=== PATIENT | female | born 1955 ===

== ENCOUNTER 2023-12-30 16:08 | Emergency (ER) | payer OTHER, SELFPAY ==
--- NOTE | ~2023-12-30 | XR_ITS ---
EXAMINATION: X-RAY RIGHT TIBIA/FIBULA X-RAY RIGHT ANKLE X-RAY RIGHT FOOT CLINICAL INFORMATION: Fall. COMPARISON: None available. TECHNIQUE: 2 views of the right tibia/fibula, 2 views of the right ankle and 3 views of the right foot. FINDINGS: Obliquely oriented mildly displaced distal fibular fracture. Minimal asymmetric widening of the medial clear space of the ankle mortise. Surrounding soft tissue swelling. Very subtle punctate osseous fragment adjacent to the lateral surface of the distal phalanx of the second toe that might represent a tiny degenerative osteophyte versus very small avulsion injury. No additional fractures. Mild multifocal degenerative osteoarthritis. No unexpected radiopaque foreign bodies. XR/XR ankle RT 2V IMPRESSION: 1. Mildly displaced distal fibular fracture. 2. Minimal asymmetric widening of the medial clear space of the ankle mortise suggesting ligamentous injury. 3. Very subtle punctate osseous fragment adjacent to the lateral surface of the distal phalanx of the second toe that might represent a degenerative osteophyte versus very small avulsion injury. Correlate with point tenderness.
--- NOTE | ~2023-12-30 | XR_ITS ---
EXAMINATION: X-RAY RIGHT TIBIA/FIBULA X-RAY RIGHT ANKLE X-RAY RIGHT FOOT CLINICAL INFORMATION: Fall. COMPARISON: None available. TECHNIQUE: 2 views of the right tibia/fibula, 2 views of the right ankle and 3 views of the right foot. FINDINGS: Obliquely oriented mildly displaced distal fibular fracture. Minimal asymmetric widening of the medial clear space of the ankle mortise. Surrounding soft tissue swelling. Very subtle punctate osseous fragment adjacent to the lateral surface of the distal phalanx of the second toe that might represent a tiny degenerative osteophyte versus very small avulsion injury. No additional fractures. Mild multifocal degenerative osteoarthritis. No unexpected radiopaque foreign bodies. XR/XR foot RT 2V IMPRESSION: 1. Mildly displaced distal fibular fracture. 2. Minimal asymmetric widening of the medial clear space of the ankle mortise suggesting ligamentous injury. 3. Very subtle punctate osseous fragment adjacent to the lateral surface of the distal phalanx of the second toe that might represent a degenerative osteophyte versus very small avulsion injury. Correlate with point tenderness.
--- NOTE | ~2023-12-30 | XR_ITS ---
EXAMINATION: X-RAY RIGHT TIBIA/FIBULA X-RAY RIGHT ANKLE X-RAY RIGHT FOOT CLINICAL INFORMATION: Fall. COMPARISON: None available. TECHNIQUE: 2 views of the right tibia/fibula, 2 views of the right ankle and 3 views of the right foot. FINDINGS: Obliquely oriented mildly displaced distal fibular fracture. Minimal asymmetric widening of the medial clear space of the ankle mortise. Surrounding soft tissue swelling. Very subtle punctate osseous fragment adjacent to the lateral surface of the distal phalanx of the second toe that might represent a tiny degenerative osteophyte versus very small avulsion injury. No additional fractures. Mild multifocal degenerative osteoarthritis. No unexpected radiopaque foreign bodies. XR/XR tibia fibula RT 2V IMPRESSION: 1. Mildly displaced distal fibular fracture. 2. Minimal asymmetric widening of the medial clear space of the ankle mortise suggesting ligamentous injury. 3. Very subtle punctate osseous fragment adjacent to the lateral surface of the distal phalanx of the second toe that might represent a degenerative osteophyte versus very small avulsion injury. Correlate with point tenderness.
[2023-12-30 16:45] VITALS: BP 101/47; PULSE 84; RESP 16; TEMP 37; O2SAT 98; BMI 24.1
--- NOTE | 2023-12-30 17:03 | ED_ITS ---
HPI - General Adult General Chief complaint: Extremity Injury, Lower Stated complaint: rt ankle fracture Time Seen by Provider: 12/30/23 21:02 Source: patient and family Mode of arrival: ambulatory History of Present Illness HPI narrative: 68-year-old female who fell 3 days ago, unable to go downstairs so daughter came and picked her up and took her to urgent care on Sunday where x-ray showed a minimally displaced fibular fracture, at that time she was placed in a walking boot until no weight-bearing but decided to come in due to inability to use crutches. Related Data Previous Rx's ?Medication ?Instructions ?Recorded walker #1 ea 12/30/23 Allergies Allergy/AdvReac Type Severity Reaction Status Date / Time No Known Allergies Allergy Verified 12/30/23 16:51 Review of Systems Review of Systems: Pertinent positives and negatives as stated in HPI [facility] Past Medical History Source: nursing notes reviewed Medical History (Updated 12/30/23 @ 21:43 by Sophie Sosa MD) Fracture of distal end of fibula Social History Social History Smoked in Last 30 Days: No Use of substances other than those prescribed or required for medical reasons: No Advance Directives: No Advance Directives Information Provided: No Physical Exam ED Vital Signs: Vital Signs - 24 hr 12/30/23 16:45 12/30/23 20:06 12/30/23 22:04 Temperature 98.6 F 98.9 F 98.0 F Pulse Rate 84 65 73 Respiratory Rate 16 16 18 Blood Pressure 101/47 L 100/62 107/58 L Pulse Oximetry 98 95 96 Oxygen Delivery Method Room Air Room Air Room Air 12/30/23 22:07 Temperature 98.0 F Pulse Rate 73 Respiratory Rate 17 Blood Pressure 107/58 L Pulse Oximetry 96 Oxygen Delivery Method Room Air BMI result Body Mass Index 24.1 VITAL SIGNS: Reviewed. GENERAL: Well developed, well nourished, in no acute distress. HEAD: Normocephalic/atraumatic EYES: PERRLA, EOMI LUNGS: Normal breath sounds. No adventitious sounds or accessory muscle use. SpO2<95> CARDIOVASCULAR: Regular rate and rhythm without noted murmurs ABDOMEN: Soft, non-tender, non-distended with bowel sounds. MUSCULOSKELETAL: No tenderness, deformities, or effusions noted on gross inspection. EXTREMITIES: No cyanosis, clubbing or edema. RLE: In walking boot, minimal swelling, sensation intact, DP/PT intact with good capillary refill. SKIN: Inspection of the skin reveals no rashes NEUROLOGIC: Alert and oriented x 4. Strength and sensation to light touch were grossly intact x 4. Course Course Course Narrative: RME: 68 yold female brought by daughter for ortho evaluation of known right for right ankle fracture. Fracture occurred 3 days ago and URgent Care MD recommend she come to ED for evaluation. Daugher states patient has no new trauma and has not complain of much pain. repeat xray ordered Medical Decision Making Medical Decision Making MDM Narrative: 68-year-old female with history and clinical presentation of being hard of hearing and also further evaluation for fall with pain at bright ankle since . On review of x-rays there is obvious minimal displaced distal fibular fracture with asymmetrical mortise suggesting underlying ligamentous injury, patient is neurovascularly intact. 212: I discussed with orthopedics who agrees nonweightbearing and walker and will see patient in outpatient setting. Differential Diagnosis Differential Diagnoses: The differential diagnosis associated with the presentation includes Please see the discussion above Admission/Observation Consideration of admission/observation: Escalation of care including admission/observation considered Please see the discussion above Consult Healthcare Provider Management of the patient was discussed with: Medical Technologist Hematology Please see the discussion above Radiology Impression Discussion of test interpretation with radiology: I have reviewed the radiologist's reading. Radiologist Impression: Please see the discussion above Chronic Conditions Patient?s care impacted by: Other Current everyday smoker Critical Care Time Critical Care Time Critical Care Time: Yes Total Critical Care Time: 30 Attestation: I personally attest to this time spent taking care of the patient. Discharge Plan Discharge Clinical Impression: Fracture of distal end of fibula Patient Disposition: Home, Self-Care Instructions: Leg Fracture (ED), Walking Boot (ED) Additional Instructions: Recommend [id number] Tylenol/ibuprofen as needed for pain control. Keep extremity elevated when possible. No weight-bearing, please call orthopedics tomorrow morning the contact information is located below. Prescriptions: New (DME) walker Misc See Rx Instructions .Route Qty: 1 0RF Rx Instructions: Use for nonweightbearing ambulation. Referrals: Jarad Araiza MD [Physician] - Stand Alone Forms: Work/School Release Interventions: ED Discharge Assessment Last Done: 12/30/23 22:07 Discharge Date/Time: 12/30/23 22:08 Print Language: Nauruan
[2023-12-30 20:06] VITALS: BP 100/62; PULSE 65; RESP 16; TEMP 37.2; O2SAT 95
[2023-12-30 22:04] VITALS: BP 107/58; PULSE 73; RESP 18; TEMP 36.7; O2SAT 96
[2023-12-30 22:07] VITALS: BP 107/58; PULSE 73; RESP 17; TEMP 36.7; O2SAT 96
== END 2023-12-30 22:08 | disposition home or self-care (01) ==
PROVIDERS: Emergency Provider Student in an Organized Health Care Education/Training Program
DX: S82.831A Other fracture of upper and lower end of right fibula, initial encounter for closed fracture (principal); M25.571 Pain in right ankle and joints of right foot; M79.604 Pain in right leg; W10.9XXA Fall (on) (from) unspecified stairs and steps, initial encounter; Y93.9 Activity, unspecified; Y92.9 Unspecified place or not applicable; Y99.8 Other external cause status
CPT/HCPCS: 73590; 73600; 73620; 99283; 99284

== ENCOUNTER 2024-01-02 14:47 | Outpatient (AMB) | payer OTHER, SELFPAY ==
--- NOTE | 2024-01-02 14:55 | MHC.OFFVIS ---
Intake Vital Signs 01/02/24 15:04 Height 5 ft 5 in Weight 145 lb BMI 24.1 Intake Visit Reasons: F/C right fx distal fibula 12/27/23 Intake Note: Taty salter 68 year old female presents today with her daughter for an ER follow up of right distal fibula fracture, DOI 12/27/23. Patient reports while she was going into her apartment the neighbors big dog came down the stairs at a fast speed knocking the patient down causing her to flip in the air and land on her back. She had soreness however she wanted to wait to see if she had any improvement prior to urgent care visit. She presented to an [facility] urgent care where she was placed in a boot sent to [facility] for xrays. She also presented to [facility] [place] [place] ED a couple of days later, xrays were obtained and referred to orthopedics. Currently her pain is located at the lateral aspect of ankle that radiates up her leg. Intermittent numbness and tingling. Finds relief with elevation and naproxen. Allergies morphine Adverse Reaction (Verified 01/02/24 15:02) Blood pressure drops HPI F/C right fx distal fibula 12/27/23 HPI Details 68-year-old female who presents to the office today with her daughter for evaluation of right ankle injury she sustained on 12/27/2023. She states she was going to her apartment when the neighbors dog came down the stairs at a fast speed knocking the patient down causing her to flip in the air and land on her back. She states she had soreness after the fall however she wanted to wait to see if she sees any improvement prior to urgent care visit. She was seen in the ED about 2 days later where x-rays were performed , she was placed in a boot and she was referred to our office. She has been nonweightbearing using a kneeling scooter. She currently states she has pain at the lateral aspect of her ankle which radiates up to her leg. She also c/o intermittent numbness and tingling in her ankle. She finds relief with elevation and naproxen. Her daughter states that she is weight-bearing at baseline and is minimally active. [facility] Medical History (Updated 01/02/24 @ 20:03 by Adarsh Meyer PA-C) Fracture of distal end of fibula Social History Patient Tobacco Use Status: Current everyday Tobacco user Current occupational status: retired Review of Systems Const All systems reviewed & are unremarkable except as noted in HPI and below Physical Exam Vital Signs: BMI result Body Mass Index 24.1 Const General: cooperative, healthy appearing, comfortable, no acute distress, well developed and alert Orientation/consciousness: patient oriented x3 HEENT Head: Yes normal to inspection, Yes normocephalic and Yes atraumatic Eyes General: appearance normal, both eyes and all related structures Resp Effort & Inspection: normal respiratory effort and able to speak in complete sentences Cardio Rate: regular rate Peripheral pulses: Peripheral pulses 2+ throughout GI Palpation (GI): Soft to palpation Skin Lesions: no lesions Rashes: no rashes Neuro General: patient oriented x3 Extrem Other: Right ankle: Normal to inspection with diffuse swelling over the medial and lateral malleolus with tenderness along the lateral malleolus and syndesmosis. No discomfort along the posterior aspect of the ankle, no deformity along the Achilles tendon, negative Cordova?s. No pain along the syndesmosis or anterior tibia. No laxity, NVI. Results Reviewed Results Reviewed: X-rays of the right ankle obtained in the emergency department on December 29 are significant for a lateral malleolus fracture with minimal displacement through the mortise Assessment & Plan Assessment & Plan (1) Fracture of distal end of fibula: Code(s): S82.839A - Other fracture of upper and lower end of unspecified fibula, initial encounter for closed fracture Qualifiers: Encounter type: initial encounter Fracture type: closed Fracture morphology: other fracture Laterality: right Qualified Code(s): S82.831A - Other fracture of upper and lower end of right fibula, initial encounter for closed fracture Plan I explained to the patient and her daughter the extent of the injury and options available. I did recommend surgical intervention to help with the stability of the fracture and help prevent further displacement and collapse of the ankle joint. I did explain that with or without surgery this may predispose her to posttraumatic arthritis. She is a bit hesitant to proceed with surgery. I did explain that we can treat this conservatively but will have to watch her very closely to make sure there is no displacement. I will allow her to weight bear as tolerated with the boot and I will see her back in 1 week to reassess and obtain new x-rays. I did explain if further displacement occurs and there is evidence of collapse then there may be no option than to proceed with surgical intervention. I also explained the longer we wait to proceed with any type of surgery may make it more difficult for a repair in the future. The patient and daughter does express understanding and the patient is adamant at treating this without surgery at this time. She was fit for a new boot in the office as the boot from the emergency department was too big. She was also given a prescription for a kneeling scooter and a walker. I will see her back in 1 week with new x-rays, sooner if needed. Of note, fracture care was not billed today as reassessment will be performed next week to determine next step in care. Medications: New [Kneeling Scooter] As directed 1 ea 0RF Crush injury let ankle S82.839A - Other fracture of upper and lower end of unspecified fibula, initial encounter for closed fracture walker Folding Front wheeled walker 1 ea 0RF S82.839A - Other fracture of upper and lower end of unspecified fibula, initial encounter for closed fracture Patient Instructions: Scribed for Adarsh Meyer PA-C, by Kike Gregorio medical management specialist, on 01/02/2024 at 2:45 PM EST. I, Adarsh Meyer PA-C, have personally reviewed and agree with the information entered by the scribe. Coding Level of Care Code New Pt Level 3 (33982) Diagnoses Other closed fracture of distal end of right fibula, initial encounter S82.831A Encounter type: initial encounter Fracture type: closed Fracture morphology: other fracture Laterality: right
[2024-01-02 15:04] VITALS: BMI 24.1
== END 2024-01-02 20:06 | disposition home or self-care (01) ==
PROVIDERS: Visit Provider Physician Assistant
DX: S82.831A Other fracture of upper and lower end of right fibula, initial encounter for closed fracture (principal)
CPT/HCPCS: 99203

== ENCOUNTER → 2024-01-02 14:47 | Outpatient (BNVA) | payer OTHER, SELFPAY | PROVIDERS: Visit Provider Physician Assistant | DX: S82.831A Other fracture of upper and lower end of right fibula, initial encounter for closed fracture (principal) | CPT/HCPCS: 99202 ==

== ENCOUNTER 2024-01-11 12:41 | Outpatient (REF) | payer OTHER, SELFPAY ==
--- NOTE | ~2024-01-11 | XR_ITS ---
EXAMINATION: XR ANKLE, RIGHT CLINICAL INFORMATION: Pain in right ankle and joints of foot. COMPARISON: 12/30/2023 TECHNIQUE: AP, lateral, and mortise views of the right ankle. FINDINGS: Diffuse soft tissue swelling and joint effusion. Ankle mortise is preserved. Redemonstration of mildly displaced oblique distal fibular fracture with reduction of previously noted minimal asymmetric widening of the medial clear space of the ankle mortise. XR/XR ankle RT min 3V IMPRESSION: Redemonstration of mildly displaced oblique fracture of the distal fibula with improved alignment.
== END 2024-01-11 12:42 | disposition home or self-care (01) ==
LOC: HO.HOSX 12:41
PROVIDERS: Visit Provider Physician Assistant
DX: S82.831D Other fracture of upper and lower end of right fibula, subsequent encounter for closed fracture with routine healing (principal)
CPT/HCPCS: 73610; 99212

== ENCOUNTER 2024-01-11 12:50 | Outpatient (AMB) | payer OTHER, SELFPAY ==
[2024-01-11 12:53] VITALS: BMI 24.1
--- NOTE | 2024-01-11 12:53 | MHC.OFFVIS ---
Vital Signs 01/11/24 12:53 Height 5 ft 5 in Weight 145 lb BMI 24.1 Intake Visit Reasons: ov-right fx distal fibula 12/27/23 Intake Note: a 68 year old female presents today with her daughter for an ER follow up of right distal fibula fracture, DOI 12/27/23. Patient reports her pain, numbness, swelling and tingling have improved. Allergies morphine Adverse Reaction (Verified 01/11/24 13:19) Blood pressure drops HPI HPI ov-right fx distal fibula 12/27/23: Details: 68-year-old female who returns to the office today for a follow-up of right ankle fracture, 12/27/23. She states she has improvement in her pain, numbness and tingling and is doing well overall. She has no concerns today. [facility] Medical History (Updated 01/13/24 @ 21:09 by Adarsh Meyer PA-C) Fracture of distal end of fibula Social History Patient Tobacco Use Status: Current everyday Tobacco user Current occupational status: retired Review of Systems Const All systems reviewed & are unremarkable except as noted in HPI and below Physical Exam Vital Signs: BMI result Body Mass Index 24.1 Const General: cooperative, healthy appearing, comfortable, no acute distress, well developed and alert Orientation/consciousness: patient oriented x3 HEENT Head: Yes normal to inspection, Yes normocephalic and Yes atraumatic Eyes General: appearance normal, both eyes and all related structures Resp Effort & Inspection: normal respiratory effort and able to speak in complete sentences Cardio Rate: regular rate Peripheral pulses: Peripheral pulses 2+ throughout GI Palpation (GI): Soft to palpation Skin Lesions: no lesions Rashes: no rashes Neuro General: patient oriented x3 Extrem Other: Right ankle: Normal to inspection with mild swelling over the medial and lateral malleolus with tenderness along the lateral malleolus . No discomfort along the posterior aspect of the ankle, no deformity along the Achilles tendon, negative Cordova?s. No pain along the syndesmosis or anterior tibia. No laxity, NVI. Results Reviewed Results Reviewed: X-rays of the right ankle obtained in the office today significant for a stable lateral malleolus fracture, ankle mortise intact Assessment & Plan Assessment & Plan (1) Fracture of distal end of fibula: Code(s): S82.839A - Other fracture of upper and lower end of unspecified fibula, initial encounter for closed fracture Category: Medical Qualifiers: Encounter type: subsequent encounter Fracture morphology: other fracture Fracture type: closed Laterality: right Fracture healing: with routine healing Qualified Code(s): S82.831D - Other fracture of upper and lower end of right fibula, subsequent encounter for closed fracture with routine healing Plan She will continue with limited weight bearing on the RLE with boot for 2 weeks, at which point she will see me back for repeat x-rays to recheck the stability of the fracture, sooner if needed. Orders: Orders XR ankle RT min 3V 01/11/24 M25.571 - Pain in right ankle and joints of right foot Patient Instructions: Scribed for Adarsh Meyer PA-C, by Kike Gregorio medical numerical control operator, on 01/11/2024 at 12:45 PM EST. IAdarsh PA-C, have personally reviewed and agree with the information entered by the scribe.
== END 2024-01-11 13:41 | disposition home or self-care (01) ==
PROVIDERS: Visit Provider Physician Assistant
DX: S82.831D Other fracture of upper and lower end of right fibula, subsequent encounter for closed fracture with routine healing (principal)
CPT/HCPCS: 99213

== ENCOUNTER 2024-01-24 06:51 | Outpatient (REF) | payer OTHER, SELFPAY ==
--- NOTE | ~2024-01-24 | XR_ITS ---
EXAMINATION: XR ANKLE, RIGHT CLINICAL INFORMATION: Right ankle pain COMPARISON: None available. TECHNIQUE: AP, lateral, and mortise views of the right ankle. FINDINGS: Examination of the right ankle shows lateral soft tissue swelling. The distal right fibula appear somewhat mottled, with a questionable cortical irregularity. The talar dome and ankle mortise are intact. XR/XR ankle RT min 3V IMPRESSION: 1. Lateral soft tissue swelling with a suggestion of mottling of the distal right fibula, with associated focal cortical irregularity. This might be on the basis of trauma, although infection, particularly osteomyelitis could've a similar appearance. Suggest correlation with clinical history. If indicated, MRI would be of benefit in further evaluation.
== END 2024-01-24 06:52 | disposition home or self-care (01) ==
LOC: HO.HOSX 06:51
PROVIDERS: Visit Provider Physician Assistant
DX: S82.831D Other fracture of upper and lower end of right fibula, subsequent encounter for closed fracture with routine healing (principal)
CPT/HCPCS: 73610; 99212

== ENCOUNTER 2024-01-24 10:24 | Outpatient (AMB) | payer OTHER, SELFPAY ==
[2024-01-24 10:34] VITALS: BMI 24.1
--- NOTE | 2024-01-24 10:34 | MHC.OFFVIS ---
Vital Signs 01/24/24 10:34 Height 5 ft 5 in Weight 145 lb BMI 24.1 Intake Visit Reasons: ov-Rt distal fib fx w xrays Intake Note: Taty is a 68 year old female, right hand dominant, who presents today for follow up on right distal fibula fracture. Patient reports she has been more weight bearing. Patient shares she had two episodes of pain during her sleep but has not had any more pain since them. She is not taking any pain meds at this time. 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 She states she has improvement in her pain and weight bearing and is doing well overall. She reports she had 2 episodes of pain during her sleep but has not had any more pain since then. She is currently not taking any pain medications. She has no concerns today. [facility] Medical History (Updated 01/13/24 @ 21:09 by Adarsh Meyer PA-C) Fracture of distal end of fibula Social History Patient Tobacco Use Status: Current everyday Tobacco user Current occupational status: retired Review of Systems Const All systems reviewed & are unremarkable except as noted in HPI and below Physical Exam Vital Signs: BMI result Body Mass Index 24.1 Const General: cooperative, healthy appearing, comfortable, no acute distress, well developed and alert Orientation/consciousness: patient oriented x3 HEENT Head: Yes normal to inspection, Yes normocephalic and Yes atraumatic Eyes General: appearance normal, both eyes and all related structures Resp Effort & Inspection: normal respiratory effort and able to speak in complete sentences Cardio Rate: regular rate Peripheral pulses: Peripheral pulses 2+ throughout GI Palpation (GI): Soft to palpation Skin Lesions: no lesions Rashes: no rashes Neuro General: patient oriented x3 Extrem Other: Right ankle: Normal to inspection with improved swelling over the medial and lateral malleolus with tenderness along the lateral malleolus . No discomfort along the posterior aspect of the ankle, no deformity along the Achilles tendon, negative Cordova?s. No pain along the syndesmosis or anterior tibia. No laxity, NVI. Results Reviewed Results Reviewed: X-rays of the right ankle obtained in the office today significant for a stable lateral malleolus fracture, ankle mortise intact Assessment & Plan Assessment & Plan (1) Fracture of distal end of fibula: Code(s): S82.839A - Other fracture of upper and lower end of unspecified fibula, initial encounter for closed fracture Category: Medical Qualifiers: Encounter type: subsequent encounter Fracture healing: with routine healing Fracture morphology: other fracture Fracture type: closed Laterality: right Qualified Code(s): S82.831D - Other fracture of upper and lower end of right fibula, subsequent encounter for closed fracture with routine healing Plan She will continue to limit weight bearing with the boot for 3 weeks at which point she will see back with x-rays and potential transition her to a lace up brace if she continues to do well. Orders: Orders XR ankle RT min 3V Today M25.571 - Pain in right ankle and joints of right foot Patient Instructions: Scribed for Adarsh Meyer PA-C, by Kike Gregorio hospital medical assistant, on 01/24/2024 at 10:45 AM EST. I, Adarsh Meyer PA-C, have personally reviewed and agree with the information entered by the scribe. Coding Level of Care Code Global (88327) Diagnoses Other closed fracture of distal end of right fibula with routine healing, subsequent encounter S82.831D Encounter type: subsequent encounter Fracture healing: with routine healing Fracture morphology: other fracture Fracture type: closed Laterality: right
== END 2024-01-24 11:17 | disposition home or self-care (01) ==
PROVIDERS: Visit Provider Physician Assistant
DX: S82.831D Other fracture of upper and lower end of right fibula, subsequent encounter for closed fracture with routine healing (principal)
CPT/HCPCS: 99213

== ENCOUNTER 2024-02-13 13:32 | Outpatient (AMB) | payer OTHER, SELFPAY ==
--- NOTE | 2024-02-13 13:43 | MHC.OFFVIS ---
Vital Signs 02/13/24 13:51 Height 5 ft 5 in Weight 145 lb BMI 24.1 Intake Visit Reasons: OV-Rt ankle dis fib fx w xrays Intake Note: Taty a 68 year old female presents today with her daughter for a follow up of right distal fibula fracture, DOI 12/27/23. Xrays updated. Patient reports she is dong well, states her pain is tolerable. She has been walking with boot and cane. She uses knee scooter with any prolong walking. Allergies morphine Adverse Reaction (Verified 01/24/24 10:35) Blood pressure drops HPI HPI OV-Rt ankle dis fib fx w xrays: Details: 69-year-old female who returns to the office today with her daughter for a follow-up of right ankle fracture, 12/27/23. She continues to have tolerable pain however she is doing well overall. She has been using her boot and cane as instructed. She uses the knee scooter with prolonged walking. She has no other concerns today. [facility] Medical History (Updated 01/13/24 @ 21:09 by Adarsh Meyer PA-C) Fracture of distal end of fibula Social History Patient Tobacco Use Status: Current everyday Tobacco user Current occupational status: retired Review of Systems Const All systems reviewed & are unremarkable except as noted in HPI and below Physical Exam Vital Signs: BMI result Body Mass Index 24.1 Const General: cooperative, healthy appearing, comfortable, no acute distress, well developed and alert Orientation/consciousness: patient oriented x3 HEENT Head: Yes normal to inspection, Yes normocephalic and Yes atraumatic Eyes General: appearance normal, both eyes and all related structures Resp Effort & Inspection: normal respiratory effort and able to speak in complete sentences Cardio Rate: regular rate Peripheral pulses: Peripheral pulses 2+ throughout GI Palpation (GI): Soft to palpation Skin Lesions: no lesions Rashes: no rashes Neuro General: patient oriented x3 Extrem Other: Right ankle: Normal to inspection with improved swelling over the medial and lateral malleolus with tenderness along the lateral malleolus . No discomfort along the posterior aspect of the ankle, no deformity along the Achilles tendon, negative Cordova?s. No pain along the syndesmosis or anterior tibia. No laxity, NVI. Results Reviewed Results Reviewed: X-rays of the right ankle obtained in the office today significant for a stable lateral malleolus fracture, ankle mortise intact Assessment & Plan Assessment & Plan (1) Fracture of distal end of fibula: Code(s): S82.839A - Other fracture of upper and lower end of unspecified fibula, initial encounter for closed fracture Category: Medical Qualifiers: Encounter type: subsequent encounter Fracture healing: with routine healing Fracture morphology: other fracture Fracture type: closed Laterality: right Qualified Code(s): S82.831D - Other fracture of upper and lower end of right fibula, subsequent encounter for closed fracture with routine healing Plan She was transitioned to a lace up ankle brace while in house and continue to wear the boot for 3 weeks when she is out of the house. She will begin a course of physical therapy to work on ROM and gait training. I would like to see her back in 4 weeks with x-rays, sooner if needed. Orders: Orders XR wrist RT min 3V 02/13/24 M25.531 - Pain in right wrist XR ankle RT min 3V 02/13/24 M25.571 - Pain in right ankle and joints of right foot PT Evaluation and Treatment 02/13/24 S82.831D - Other fracture of upper and lower end of right fibula, subsequent encounter for closed fracture with routine healing Patient Instructions: Scribed for Adarsh Meyer PA-C, by [facility], on 02/13/2024 at 1:30 PM EST.? I, Adarsh Meyer PA-C, have personally reviewed and agree with the information entered by the scribe. Coding Level of Care Code Global (37719) Diagnoses Other closed fracture of distal end of right fibula with routine healing, subsequent encounter S82.831D Encounter type: subsequent encounter Fracture healing: with routine healing Fracture morphology: other fracture Fracture type: closed Laterality: right
[2024-02-13 13:51] VITALS: BMI 24.1
== END 2024-02-13 14:49 | disposition home or self-care (01) ==
LOC: HO.HOS 13:41
PROVIDERS: Visit Provider Physician Assistant
DX: S82.831D Other fracture of upper and lower end of right fibula, subsequent encounter for closed fracture with routine healing (principal)
CPT/HCPCS: 99213

== ENCOUNTER 2024-02-13 14:11 | Outpatient (REF) | payer OTHER, SELFPAY ==
--- NOTE | ~2024-02-13 | XR_ITS ---
EXAMINATION: XR WRIST, RIGHT CLINICAL INFORMATION: Pain in the right wrist COMPARISON: None available. TECHNIQUE: PA, lateral, and oblique views of the right wrist. FINDINGS: The bones and soft tissues are normal. No fracture. Alignment is anatomic with normal joint spaces. No erosions or abnormal soft tissue calcifications. XR/XR wrist RT min 3V IMPRESSION: Normal right wrist.
--- NOTE | ~2024-02-13 | XR_ITS ---
EXAMINATION: XR ANKLE, RIGHT CLINICAL INFORMATION: Pain in right ankle COMPARISON: Multiple prior examinations most recent 01/24/2024 TECHNIQUE: AP, lateral, and mortise views of the right ankle. FINDINGS: There is a persistent minimally displaced oblique fracture the distal fibula extending proximally from the level of mortise. There is some minimal periosteal reaction unchanged. Subtle increased density overlying the proximal aspect of the lateral clear space slightly more conspicuous than prior. This could reflect a partially displaced fracture fragment or localized chondrocalcinosis. XR/XR ankle RT min 3V IMPRESSION: Stable healing distal fibular fracture. Possible small displaced fragment along the medial aspect of the distal fibula unchanged.
== END 2024-02-13 14:12 | disposition home or self-care (01) ==
LOC: HO.HOSX 14:11
PROVIDERS: Visit Provider Physician Assistant
DX: M25.571 Pain in right ankle and joints of right foot (principal); M25.531 Pain in right wrist
CPT/HCPCS: 73110; 73610; 99212

== ENCOUNTER 2024-03-12 11:51 | Outpatient (REF) | payer OTHER, SELFPAY ==
--- NOTE | ~2024-03-12 | XR_ITS ---
EXAMINATION: XR ANKLE, LEFT CLINICAL INFORMATION: Pain in the left ankle and joints of left foot. COMPARISON: February 13, 2024 TECHNIQUE: AP, lateral, and mortise views of the left ankle. FINDINGS: Redemonstration of minimally displaced oblique fracture of the distal fibula extending to the level of the mortise. Some interval bridging callus formation identified. Alignment is similar. Ankle joint effusion with diffuse soft tissue swelling. XR/XR ankle LT min 3V IMPRESSION: Redemonstration of minimally displaced oblique fracture of the distal fibula extending to the level of the mortise. Some interval bridging callus formation identified.
== END 2024-03-12 11:52 | disposition home or self-care (01) ==
LOC: HO.HOSX 11:51
PROVIDERS: Visit Provider Physician Assistant
DX: S82.831D Other fracture of upper and lower end of right fibula, subsequent encounter for closed fracture with routine healing (principal); M25.531 Pain in right wrist; M25.572 Pain in left ankle and joints of left foot
CPT/HCPCS: 73610; 99212

== ENCOUNTER 2024-03-12 12:52 | Outpatient (AMB) | payer OTHER, SELFPAY ==
--- NOTE | 2024-03-12 12:58 | MHC.OFFVIS ---
Vital Signs 03/12/24 13:11 Height 5 ft 5 in Weight 145 lb BMI 24.1 Intake Visit Reasons: ov- right ankle Intake Note: Taty a 68 year old female presents today for a follow up of right distal fibula fracture, DOI 12/27/23. Xrays updated. Patient reports she is doing well, states she has completed PT and is unsure if she will need more sessions. States discomfort in ankle with prolong sitting and standing from a sitting position. She has concerns of her right wrist pain and is unable to twist her wrist. Allergies morphine Adverse Reaction (Verified 03/12/24 13:11) Blood pressure drops Medication List - Last Reconciled 03/22/24 by Adarsh Meyer PA-C [Kneeling Scooter As directed] walker Use for nonweightbearing ambulation. walker Folding Front wheeled walker HPI HPI ov- right ankle: Details: 69-year-old female who returns to the office today for a follow-up of right ankle fracture, 12/27/23. She reports she has discomfort in her knee with prolonged sitting and standing from a sitting position. She has completed with physical therapy as instructed. She is doing well overall and has no other concerns today. [facility] Medical History (Updated 03/12/24 @ 13:18 by Adarsh Meyer PA-C) Fracture of distal end of fibula Social History Patient Tobacco Use Status: Current everyday Tobacco user Current occupational status: retired Review of Systems Const All systems reviewed & are unremarkable except as noted in HPI and below Physical Exam Vital Signs: BMI result Body Mass Index 24.1 Const General: cooperative, healthy appearing, comfortable, no acute distress, well developed and alert Orientation/consciousness: patient oriented x3 HEENT Head: Yes normal to inspection, Yes normocephalic and Yes atraumatic Eyes General: appearance normal, both eyes and all related structures Resp Effort & Inspection: normal respiratory effort and able to speak in complete sentences Cardio Rate: regular rate Peripheral pulses: Peripheral pulses 2+ throughout GI Palpation (GI): Soft to palpation Skin Lesions: no lesions Rashes: no rashes Neuro General: patient oriented x3 Extrem Other: Right ankle: Normal to inspection with improved swelling over the medial and lateral malleolus without tenderness along the lateral malleolus . No discomfort along the posterior aspect of the ankle, no deformity along the Achilles tendon, negative Cordova?s. No pain along the syndesmosis or anterior tibia. No laxity, NVI. Results Reviewed Results Reviewed: X-rays of the right ankle obtained in the office today significant for a stable lateral malleolus fracture, ankle mortise intact Assessment & Plan Assessment & Plan (1) Right wrist sprain: Code(s): S63.501A - Unspecified sprain of right wrist, initial encounter Category: Medical (2) Fracture of distal end of fibula: Code(s): S82.839A - Other fracture of upper and lower end of unspecified fibula, initial encounter for closed fracture Category: Medical Qualifiers: Encounter type: subsequent encounter Fracture healing: with routine healing Fracture morphology: other fracture Fracture type: closed Laterality: right Qualified Code(s): S82.831D - Other fracture of upper and lower end of right fibula, subsequent encounter for closed fracture with routine healing Plan She will continue with the therapy exercises at home and increase activities as tolerated. She will see me back as needed. Orders: Orders OT Evaluation and Treatment 03/12/24 S63.501A - Unspecified sprain of right wrist, initial encounter XR ankle LT min 3V 03/12/24 M25.572 - Pain in left ankle and joints of left foot Patient Instructions: Scribed for Adarsh Meyer PA-C, by [facility], on 03/12/2024 at 1:00 PM EST.? I, Adarsh Meyer PA-C, have personally reviewed and agree with the information entered by the scribe. Coding Level of Care Code Global (46633) Diagnoses Right wrist sprain S63.501A Other closed fracture of distal end of right fibula with routine healing, subsequent encounter S82.831D Encounter type: subsequent encounter Fracture healing: with routine healing Fracture morphology: other fracture Fracture type: closed Laterality: right
[2024-03-12 13:11] VITALS: BMI 24.1
== END 2024-03-12 14:28 | disposition home or self-care (01) ==
PROVIDERS: Visit Provider Physician Assistant
DX: S82.831D Other fracture of upper and lower end of right fibula, subsequent encounter for closed fracture with routine healing (principal); S63.501A Unspecified sprain of right wrist, initial encounter
CPT/HCPCS: 99213

== ENCOUNTER 2024-04-21 15:08 | Outpatient (AMB) | payer OTHER, SELFPAY ==
--- NOTE | 2024-04-21 15:20 | MHC.PC.OV ---
Vital Signs 04/21/24 15:26 Height 5 ft 4.29 in Weight 129 lb 6 oz BMI 22.0 BP 120/70 Blood Pressure Location Lt brachial Position Sitting Respiration 16 Pulse 68 Pulse Source Palpation Intake Visit Reasons: Establish Care not a transfer Intake Note: new patient, hearing loss Is last menstrual period known: No Post menopausal: Yes Patient : No Allergies morphine Adverse Reaction (Verified 04/21/24 15:21) Blood pressure drops Tobacco use date assessed: 04/21/24 Fall risk assessment: 2 + Falls in past year Last assessed Fall Risk: 04/21/24 Dental Screening Dental Screen Date: 04/21/24 Did you have a dental visit in the last 12 months?: No Did you have a dental problem in the last 6 months where you did not have access to dental care?: Yes Was dental information given to patient?: Patient declined HPI HPI Comments History of Present Illness Details 69 year old female with no significant past medical history presenting to establish care. Last doctor Татьяна MURGUIA. Accompanied by daughter. Has hearing aid service dog. Still doing CORE two days a week hand. Finished PT for leg Does all ADLs at home. Declines mammography, colonoscopy, bone density ROS see HPI PHYSICAL EXAM: GENERAL: Alert and oriented x 3. NAD EYES: EOMI. Anicteric. HENT: Moist mucous membranes. No scleral icterus. No cervical lymphadenopathy. LUNGS: Clear to auscultation bilaterally. CARDIOVASCULAR: Regular rate and rhythm. No murmur. No JVD. ABDOMEN: Soft, non-tender +bs EXTREMITIES: No edema. Non-tender. SKIN: No rashes or lesions. Warm. NEUROLOGIC: No focal neurological deficits. CN II-XII grossly intact PSYCHIATRIC: Cooperative. Appropriate mood and affect [facility] Medical History Imbalance Memory loss IBS (irritable bowel syndrome) Thyroid disease COPD (chronic obstructive pulmonary disease) Fracture of distal end of fibula Surgical History H/O: hysterectomy History of bladder surgery Family History Mother Asthma Thyroid disease Father Cardiovascular disease Social History Housing: Apartment Patient Tobacco Use Status: Current everyday Tobacco user Tobacco use type: Cigarette Cigarette Packs Per Day: 0.5 Years Smoked: 50 e-Cigarette/Vaping Use: Never Used Second Hand Smoke Exposure: No service: No Current occupational status: retired Current occupational exposures/hazards: No Cognitive needs: No Hearing needs: Yes Vision needs: No Questionnaire PHQ-9 Over the last 2 weeks, how often have you been bothered by any of the following problems? 1. Little interest or pleasure in doing things: not at all 2. Feeling down, depressed, or hopeless: more than half the days 3. Trouble falling or staying asleep, or sleeping too much: several days 4. Feeling tired or having little energy: not at all 5. Poor appetite or overeating: not at all 6. Feeling bad about yourself - or that you are a failure or have let yourself or your family down: several days 7. Trouble concentrating on things, such as reading the newspaper or watching television: several days 8. Moving or speaking so slowly that other people could have noticed. Or the opposite - being so fidgety or restless that you have been moving around a lot more than usual: more than half the days 9. Thoughts that you would be better off or of hurting yourself in some way: not at all Total score: 7 Depression Screening Interpretation: Positive Depression Screening Follow-up: Declines treatment Depression Screening Done: Yes [id number] - PHQ-9 Billing: Yes Source: Developed by Drs. Fer Talbot, Carolnia Alcantara, Prince Thompson and colleagues, with an educational jose from [employer]. Thrive Questionnaire Date Thrive assessed: 04/21/24 I am a: Patient What is your living situation today?: I have a steady place to live Within the past 12 months, did the food you bought not last and you didn't have the money to get more?: Never true Within the past 12 months, did you worry whether your food would run out before you got money to buy more?: Never true Do you have trouble paying for medicines?: No Do you have trouble getting transportation to medical appointments?: No Do you have trouble paying your heating and electricity bill?: Yes Do you have trouble taking care of your child, family member or friend?: No Do you have trouble with day-to-day activities such as bathing, preparing meals, shopping, managing finances, etc.?: Yes Are you currently unemployed and looking for a job?: No Are you interested in more education?: No Please select the resources that you would like help with: None Currently or been in a relationship where the following occur: No concerns reported THRIVE Score: 1 AUDIT C Alcohol Use Questionnaire (AUDIT-C) 1. How often do you have a drink containing alcohol?: Never 3. How often do you have six or more drinks on one occasion?: Never Total Score: 0 ADRIENNE-7 AMB Questionnaire ADRIENNE-7 Date ADRIENNE - 7 assessed: 04/21/24 Feeling nervous, anxious, or on edge: 0 = Not at all Not being able to stop or control worryin = Not at all Worrying too much about different things: 0 = Not at all Trouble relaxin = Not at all Being so restless that it is hard to sit still: 0 = Not at all Becoming easily annoyed or irritable: 0 = Not at all Feeling afraid as if something awful might happen: 0 = Not at all Total ADRIENNE-7 score (0-4 normal; 5-9 mild; 10-14 moderate; 15-21 severe): 0 Source: Developed by Drs. Fer Talbot, Carolina Alcantara, Prince Thompson and colleagues, with an educational jose from [employer]. ADRIENNE-7 Assessment Billing ADRIENNE-7 Assessment Tool: ADRIENNE-7 Assessment 89192 Physical exam (Primary Care) Vital Signs: Last Vital Signs Pulse 68 04/21/24 15:26 Resp 16 04/21/24 15:26 BP 120/70 04/21/24 15:26 BMI result Body Mass Index 22.0 Tobacco/Smoking Status: Tobacco use Status Tobacco use date assessed 04/21/24 04/21/24 15:24 Patient Tobacco Use Status Current everyday Tobacco 04/21/24 15:33 Tobacco use type Cigarette 04/21/24 15:33 e-Cigarette/Vaping Use Never Used 04/21/24 15:33 PHQ-9: PHQ-9 Score PHQ-9: Total score 7 04/27/24 20:36 Depression Screening Interpretation: Positive Depression Screening Follow-up: Declines treatment Thrive Assessment: Date of Thrive Assessment Date Thrive assessed 04/21/24 04/21/24 15:40 Currently or been in a relationship where the following occur: No concerns reported Assessment and Plan Assessment & Plan (1) Encounter to establish care: Comment: 69 y/o to establish care. past medical, surgical, social and family history reviewed Code(s): Z76.89 - Persons encountering health services in other specified circumstances Plan: labs ordered. Declines preventive screening Orders: Orders Complete Blood Count Auto Diff 04/21/24 E07.9 - Disorder of thyroid, unspecified, H91.90 - Unspecified hearing loss, unspecified ear, R41.3 - Other amnesia, S63.501A - Unspecified sprain of right wrist, initial encounter Comprehensive Met. Panel 04/21/24 E07.9 - Disorder of thyroid, unspecified, H91.90 - Unspecified hearing loss, unspecified ear, R41.3 - Other amnesia, S63.501A - Unspecified sprain of right wrist, initial encounter Lipid Panel 04/21/24 E07.9 - Disorder of thyroid, unspecified, H91.90 - Unspecified hearing loss, unspecified ear, R41.3 - Other amnesia, S63.501A - Unspecified sprain of right wrist, initial encounter TSH reflex Free T4 04/21/24 E07.9 - Disorder of thyroid, unspecified, H91.90 - Unspecified hearing loss, unspecified ear, R41.3 - Other amnesia, S63.501A - Unspecified sprain of right wrist, initial encounter Vitamin B12 and Folate 04/21/24 E07.9 - Disorder of thyroid, unspecified, H91.90 - Unspecified hearing loss, unspecified ear, R41.3 - Other amnesia, S63.501A - Unspecified sprain of right wrist, initial encounter Referrals Audiology Referral E07.9 - Disorder of thyroid, unspecified, H91.90 - Unspecified hearing loss, unspecified ear, R41.3 - Other amnesia, S63.501A - Unspecified sprain of right wrist, initial encounter Coding Level of Care Code New Pt Level 4 (61857) Complex EM visit Add On G2211 Diagnoses Encounter to establish care Z76.89 Additional Codes ADRIENNE-7 Assessment Billing - ADRIENNE-7 Assessment Tool: ADRIENNE-7 Assessment 19771 ([id number])
[2024-04-21 15:26] VITALS: BP 120/70; PULSE 68; RESP 16; BMI 22.0
== END 2024-04-21 16:37 | disposition home or self-care (01) ==
PROVIDERS: Visit Provider Internal Medicine
DX: E07.9 Disorder of thyroid, unspecified (principal); H91.90 Unspecified hearing loss, unspecified ear; Z76.89 Persons encountering health services in other specified circumstances
CPT/HCPCS: 99204; G2211

== ENCOUNTER 2024-04-28 14:20 | Outpatient (REF) | payer OTHER, SELFPAY ==
[2024-04-28 14:38] LABS: MANUAL DIFF FLAG NO
[2024-04-28 15:12] LABS: Basophils Percent Auto 0.5 % (0-2); Eosinophils Percent Auto 0.2 % (0-4); Hematocrit 29.7 % (37.0-47.0); Imm Gran Abs Auto 0.02 X10*3/uL (0.00-0.03); Imm Gran Pct Auto 0.5 % (0.0-0.4); Lymphocytes Absolute Auto 1.4 X10*3/uL (1.2-4.9); Lymphocytes Percent Auto 32.3 % (20-40); Mean Corpuscular Hemoglobin 35.3 pg (27.0-33.0); Mean Corpuscular Volume 95.2 fL (80.0-98.0); Mean Platelet Volume 8.9 fL (9.4-12.3); Monocytes Absolute Auto 0.3 X10*3/uL (0.1-1.2); Monocytes Percent Auto 6.6 % (2-11); Neutrophils Absolute Auto 2.6 x10*3/uL (2.0-8.3); Neutrophils Percent Auto 59.9 % (45-73); Platelet Count 252 X10*3/uL (160-400); Red Blood Count 3.12 X10*6/uL (4.20-5.50); Red Cell Distribution Width 14.6 % (11.0-16.0); White Blood Count 4.4 X10*3/uL (4.8-10.8)
[2024-04-28 15:43] LABS: Alanine Aminotransferase 22 U/L (0-31); Albumin Level 4.8 g/dL (3.5-5.0); Alkaline Phosphatase 77 U/L (39-117); Anion Gap 15 (12-20); Aspartate Amino Transferase 78 U/L (5-31); Bilirubin Total 0.5 mg/dL (0.0-1.0); Blood Urea Nitrogen 11 mg/dL (9-16); Calcium 10.2 mg/dL (8.4-10.2); Carbon Dioxide 30 mmol/L (22-29); Chloride 89 mmol/L (96-108); Cholesterol 629 mg/dL (<200); Estimated Glomerular Filt Rate 49; Glucose Random 93 mg/dL (60-115); HDL Cholesterol 79 mg/dL (>40); LDL Cholesterol Calculated 514 mg/dL (<100); Potassium 3.6 mmol/L (3.3-5.1); Sodium 130 mmol/L (135-145); Total Protein 7.8 g/dL (6.5-8.0); Triglycerides 181 mg/dL (<150)
[2024-04-28 16:08] LABS: Folate 8.3 ng/mL (> or = 4.0); Vitamin B12 1073 pg/mL (200-900)
[2024-04-28 17:40] LABS: Free T4 (Free Thyroxine) < 0.42 ng/dL (0.71-1.85)
== END 2024-04-28 14:21 | disposition home or self-care (01) ==
LOC: HO.LAB 14:20
PROVIDERS: PCP Internal Medicine; Visit Provider Internal Medicine
DX: Z13.6 Encounter for screening for cardiovascular disorders (principal); R41.3 Other amnesia; E07.9 Disorder of thyroid, unspecified; H91.90 Unspecified hearing loss, unspecified ear; S63.501A Unspecified sprain of right wrist, initial encounter
CPT/HCPCS: 36415; 80053; 80061; 82607; 82746; 84439; 84443; 85025

== ENCOUNTER 2024-05-16 14:00 | Outpatient (RCR) | payer OTHER, SELFPAY ==
--- NOTE | 2024-04-07 14:12 | MHC.OT.EP ---
[address] [phone] Occupational Therapy Plan of Care Patient Name: Taty Lopez Date of Evaluation: 04/07/24 Diagnosis: R WRIST PAIN Pain Location: R ULNAR WRIST 1/10 AT REST ROTATIONAL MOVEMENTS 10/10 Pain Score: 1-10/10 Pain Scale Used: Numeric (0 - 10) Aggravating Factors: TURNING/ROTATING WRIST Alleviating Factors: DOES NOT USE HEAT/ICE, OR TAKE PAIN MEDICATION Assessment: MS LOPEZ IS 4 MONTHS S/P FALL RESULTING IN R WRIST PAIN, THEN ONE MONTH LATER HAD ANOTHER FALL FURTHER INJURING R WRIST AND FRACTURING THE DISTAL END FIBULA. XRAY NEGATIVE FOR R WRIST FRACTURE. PAIN IS REPORTED MOSTLY WITH WRIST ROTATION AND ULNAR DEVIATION. SHE IS ABLE TO WB THROUGH HER R WRIST WHEN UTILIZING HER SPC TO AMBULATE OUTSIDE THE HOME. ROM IS WFL, YET STRENGTH IS IMPAIRED. A 65% LIMITATION IS REPORTED PER THE QUICK DASH ASSESSMENT. WILL CONT TO FOLLOW TO ADDRESS AREAS MENTIONED BELOW. Frequency and Duration: The patient will be seen 2X/WEEK FOR 4 WEEKS Short Term Goals: IND HEP IND USE OF HEAT/ICE IND JT PROTECTION/ ACTIVITY MODIFICATION IND ORTHOSIS USE Director Of Business Operations Goals: TOLERATE LIFTING/ CARRYING AND TRANSPORTING WEIGHTED OBJECTS WITH <5/10 PAIN QUICK DASH <40% R GROSS GRASP >40 POUNDS IND EDEMA MANAGEMENT STRATEGIES Treatment Plan: Therapeutic Exercise Therapeutic Activity Home Exercise Program Splinting Neuro Re-ed Patient Education Desensitization/Sensory Re-ed Edema Control ADL Training Ultrasound NMES Iontophoresis Paraffin Fluidotherapy MHP Cold Packs Joint Mobilization Soft Tissue Mobilization Kinesiotaping Other (see comments) Electronically Signed By: DIEGO MCLEAN/L Please Sign and return to therapist. Thank you once again for your referral.
--- NOTE | 2024-05-16 14:38 | MHC.OT.DC ---
[address] [phone] F: [phone] Occupational Therapy Discharge Note Patient Name: Taty Lopez Provider: Adarsh Myeer Diagnosis: R WRIST PAIN Date of Evaluation: 04/07/24 Date of Discharge: 05/16/24 Treatments to Date: 9 Cancellations to Date: 1 No Shows to Date: 0 Discharge Status: Achieved Goals Improved Function Independent with HEP Discharge Summary: MS LOPEZ HAS IMPROVED HER FUNCTION AND HAS MET HER GOALS. SHE WAS HIGHLY MOTIVATED AND SHE REPORTS RELIEF WITH ONGOING USE OF WRIST WIDGET FOR DRUJ SUPPORT. NO FURTHER OT WARRANTED AT THIS TIME. Electronically Signed By: COURTNEY ARCEO OTR/L Reviewed/agree with student documentation: N/A Therapist: Please Sign and return to therapist, thank you for your referral.
== END 2024-05-16 14:35 | disposition home or self-care (01) ==
LOC: HO.OT 14:00
PROVIDERS: Visit Provider Physician Assistant
DX: S63.501A Unspecified sprain of right wrist, initial encounter (principal)
CPT/HCPCS: 97035; 97110; 97140; 97167

== ENCOUNTER 2024-05-30 10:11 | Outpatient (AMB) | payer OTHER, SELFPAY ==
--- NOTE | 2024-05-30 10:19 | MHC.PC.OV ---
Vital Signs 05/30/24 10:20 BMI Reason not done Patient refused/unable BP 108/58 L Blood Pressure Location Lt brachial Position Sitting Respiration 12 Pulse 76 Pulse Source Pulse Oximeter Pulse Oximetry (%) 95 Oxygen Delivery Method Room Air Intake Visit Reasons: difficulty breathing Intake Note: Patient is accompanied by her daughter at todays visit. Patient reports her oxygen levels have dropped into the low 80s. Patient states she feels light headed and off balance when standing. Net Web Developer Required: No Accompanied by: Daughter Allergies morphine Adverse Reaction (Verified 05/30/24 10:33) Blood pressure drops Tobacco use date assessed: 04/21/24 Fall risk assessment: 2 + Falls in past year Last assessed Fall Risk: 05/30/24 Dental Screening Dental Screen Date: 04/21/24 HPI HPI Comments History of Present Illness Details 69 year old female with no significant past medical history presenting for follow up, shortness of breath. She was recently seen to establish care. She is accompanied by her daughter who provides most of her history. Daughter explains that mom has COPD and she has had some shortness of breath and wheezing for the past two weeks. Patient denies chest pain. She has been using old symbicort prescription. TSH 55 LDL>500. Discussed with patient and daughter the danger of potential myxedema coma. they agree to package pick up the levothyroxine prescription that was previously sent Has hearing aid service dog. Still doing CORE two days a week hand. Finished PT for leg Does all ADLs at home. Declines mammography, colonoscopy, bone density ROS see HPI PHYSICAL EXAM: GENERAL: Alert and oriented x 3. NAD EYES: EOMI. Anicteric. HENT: Moist mucous membranes. No scleral icterus. No cervical lymphadenopathy. LUNGS: Decreased air entry bilaterally CARDIOVASCULAR: Regular rate and rhythm. No murmur. No JVD. ABDOMEN: Soft, non-tender +bs EXTREMITIES: No edema. Non-tender. SKIN: No rashes or lesions. Warm. NEUROLOGIC: No focal neurological deficits. CN II-XII grossly intact PSYCHIATRIC: Quiet [facility] Medical History (Updated 06/07/24 @ 13:55 by Latoya Vidal MD) Imbalance Memory loss IBS (irritable bowel syndrome) Thyroid disease COPD (chronic obstructive pulmonary disease) Fracture of distal end of fibula Surgical History H/O: hysterectomy History of bladder surgery Family History Mother Asthma Thyroid disease Father Cardiovascular disease Social History Housing: Apartment Patient Tobacco Use Status: Current everyday Tobacco user Tobacco use type: Cigarette Cigarette Packs Per Day: 0.5 Years Smoked: 50 Packs Per Year: 25 e-Cigarette/Vaping Use: Never Used Second Hand Smoke Exposure: No service: No Current occupational status: retired Current occupational exposures/hazards: No Cognitive needs: No Hearing needs: Yes Vision needs: No Questionnaire PHQ-9 Over the last 2 weeks, how often have you been bothered by any of the following problems? [id number] - PHQ-9 Billing: Patient declined-do not bill Source: Developed by Drs. Fer Talbot, Carolina Alcantara, Prince Thompson and colleagues, with an educational jose from [employer]. Thrive Questionnaire Date Thrive assessed: 05/30/24 I am a: Patient What is your living situation today?: I choose not to answer this question Within the past 12 months, did the food you bought not last and you didn't have the money to get more?: I choose not to answer this question Within the past 12 months, did you worry whether your food would run out before you got money to buy more?: I choose not to answer this question Do you have trouble paying for medicines?: I choose not to answer this question Do you have trouble getting transportation to medical appointments?: I choose not to answer this question Do you have trouble paying your heating and electricity bill?: I choose not to answer this question Do you have trouble taking care of your child, family member or friend?: I choose not to answer this question Do you have trouble with day-to-day activities such as bathing, preparing meals, shopping, managing finances, etc.?: I choose not to answer this question Are you currently unemployed and looking for a job?: I choose not to answer this question Are you interested in more education?: I choose not to answer this question Please select the resources that you would like help with: None Currently or been in a relationship where the following occur: I choose not to answer THRIVE Score: 0 AUDIT C Alcohol Use Questionnaire (AUDIT-C) 1. How often do you have a drink containing alcohol?: Never 3. How often do you have six or more drinks on one occasion?: Never Total Score: 0 ADRIENNE-7 AMB Questionnaire ADRIENNE-7 Date ADRIENNE - 7 assessed: 05/30/24 Feeling nervous, anxious, or on edge: 0 = Not at all Not being able to stop or control worryin = Not at all Worrying too much about different things: 0 = Not at all Trouble relaxin = Not at all Being so restless that it is hard to sit still: 0 = Not at all Becoming easily annoyed or irritable: 0 = Not at all Feeling afraid as if something awful might happen: 0 = Not at all Total ADRIENNE-7 score (0-4 normal; 5-9 mild; 10-14 moderate; 15-21 severe): 0 Source: Developed by Drs. Fer Talbot, Carolina Alcantara, Prince Thompson and colleagues, with an educational jose from [employer]. ADRIENNE-7 Assessment Billing ADRIENNE-7 Assessment Tool: ADRIENNE-7 Assessment 90431 Physical exam (Primary Care) Vital Signs: Last Vital Signs Pulse 76 05/30/24 10:20 Resp 12 05/30/24 10:20 BP 108/58 L 05/30/24 10:20 Pulse Ox 95 05/30/24 10:20 Oxygen Delivery Method Room Air 05/30/24 10:20 Tobacco/Smoking Status: Tobacco use Status Tobacco use date assessed 04/21/24 05/30/24 10:20 Patient Tobacco Use Status Current everyday Tobacco 05/30/24 10:20 Tobacco use type Cigarette 05/30/24 10:20 e-Cigarette/Vaping Use Never Used 05/30/24 10:20 Thrive Assessment: Date of Thrive Assessment Date Thrive assessed 05/30/24 05/30/24 10:20 Currently or been in a relationship where the following occur: I choose not to answer Assessment and Plan Assessment & Plan (1) COPD (chronic obstructive pulmonary disease): Code(s): J44.9 - Chronic obstructive pulmonary disease, unspecified Qualifiers: COPD type: chronic bronchitis Chronic bronchitis type: unspecified Qualified Code(s): J42 - Unspecified chronic bronchitis Plan: with exacerbation Zpack and prednisone sent Start Trelegy. Albuterol prn (2) Thyroid disease: Code(s): E07.9 - Disorder of thyroid, unspecified Plan: Start previously ordered levothyroxine. Follow up TSH Orders: Orders Pulmonary Rehab 05/30/24 J44.9 - Chronic obstructive pulmonary disease, unspecified, R06.02 - Shortness of breath Medications: New azithromycin For 250 mg dose pack: take 500 mg today (day 1), then 250 mg for 4 days (days 2-5) PO 6 tabs 0RF xtibaxhrpbb-uirirrmwh-ivilidab 200-62.5-25 mcg (Trelegy Ellipta) 1 inh inhalation Q24H 90 ea 3RF albuterol sulfate 90 mcg/actuation 1 inh inhalation Q4-6H PRN 8.5 grams 0RF shortness of breath or wheezing 90 days prednisone 40 mg (2 x 20 mg) PO DAILY 10 tabs 0RF 5 days Coding Level of Care Code Est Pt Level 4 (37223) Complex EM visit Add On G2211 Diagnoses Chronic bronchitis, unspecified chronic bronchitis type J42 COPD type: chronic bronchitis Chronic bronchitis type: unspecified Thyroid disease E07.9 Additional Codes ADRIENNE-7 Assessment Billing - ADRIENNE-7 Assessment Tool: ADRIENNE-7 Assessment [id number] ([id number])
[2024-05-30 10:20] VITALS: BP 108/58; PULSE 76; RESP 12; O2SAT 95
== END 2024-05-30 12:15 | disposition home or self-care (01) ==
PROVIDERS: PCP Internal Medicine; Visit Provider Internal Medicine
DX: J42 Unspecified chronic bronchitis (principal); E07.9 Disorder of thyroid, unspecified
CPT/HCPCS: 99214; G2211

== ENCOUNTER 2024-08-15 10:33 | Outpatient (AMB) | payer OTHER, SELFPAY ==
--- NOTE | 2024-08-15 11:02 | A.OFFPC_ITS ---
Vital Signs 08/15/24 11:03 Height 5 ft 4.29 in Weight 109 lb BMI 18.5 BP 108/62 Blood Pressure Location Lt brachial Position Sitting Pulse 75 Pulse Source Pulse Oximeter Pulse Oximetry (%) 98 Oxygen Delivery Method Room Air Intake Visit Reasons: Massive weight loss and neurological symptoms Intake Note: Weight loss Allergies morphine Adverse Reaction (Verified 08/15/24 11:02) Blood pressure drops Tobacco use date assessed: 04/21/24 Dental Screening Dental Screen Date: 04/21/24 HPI HPI Comments History of Present Illness Details 69 year old female with no significant p ast medical history of COPD, hypothyroid, tobacco use, hearing loss presenting for weight loss Patient reports a 40 pound weight loss since March. From our scales there has been a 20 pound weight loss. She has been eating a lot to try and keep the weight on. She did start thyroid replacement for a markedly underactive thyroid in May. She reports ok appetite. She has been constipated for the past year. No blood in the stools. No abdominal pain, night sweats, no copd exacerbations. Sodium was low on labs. She has declined cancer screening in the past. Has been having some muscle, joint pain, pins and needle pain in the feet quite severe COPD-stable on trelegy TSH 55 LDL>500. On levothyroxine. Has not had recheck of levels. Has more ener gy, is keeping going all day, sleeps fairly well Has hearing aid service dog. Is supposed to get her hearing aids next week Still doing CORE two days a week hand. Finished PT for leg Does all ADLs at home. Declines mammography, colonoscopy, bone density ROS see HPI PHYSICAL EXAM: GENERAL: Alert and oriented x 3. NAD EYES: EOMI. Anicteric. HENT: Moist mucous membranes. No scleral icterus. No cervical lymphadenopathy. LUNGS: Decreased air entry bilaterally CARDIOVASCULAR: Regular rate and rhythm. ABDOMEN: Soft, non-tender +bs EXTREMITIES: No edema. Non-tender. SKIN: No rashes or lesions. Warm. NEUROLOGIC: No focal neurological deficits. CN II-XII grossly intact PSYCHIATRIC: Normal affect [facility] Medical History (Updated 08/15/24 @ 11:19 by Latoya Vidal MD) Imbalance Memory loss IBS (irritable bowel syndrome) Thyroid disease COPD (chronic obstructive pulmonary disease) Fracture of distal end of fibula Surgical History H/O: hysterectomy History of bladder surgery Family History Mother Asthma Thyroid disease Father Cardiovascular disease Social History (Updated 08/15/24 @ 11:07 by Imelda Willard CMA) Housing: Apartment Alcohol intake: never Patient Tobacco Use Status: Current everyday Tobacco user Tobacco use type: Cigarette Cigarette Packs Per Day: 0.5 Years Smoked: 50 e-Cigarette/Vaping Use: Never Used Second Hand Smoke Exposure: No service: No Current occupational status: retired Current occupational exposures/hazards: No Cognitive needs: No Hearing needs: Yes Vision needs: No Questionnaire Thrive Questionnaire Date Thrive assessed: 05/30/24 I am a: Patient What is your living situation today?: I choose not to answer this question Within the past 12 months, did the food you bought not last and you didn't have the money to get more?: I choose not to answer this question Within the past 12 months, did you worry whether your food would run out before you got money to buy more?: I choose not to answer this question Do you have trouble paying for medicines?: I choose not to answer this question Do you have trouble getting transportation to medical appointments?: I choose not to answer this question Do you have trouble paying your heating and electricity bill?: I choose not to answer this question Do you have trouble taking care of your child, family member or friend?: I choose not to answer this question Do you have trouble with day-to-day activities such as bathing, preparing meals, shopping, managing finances, etc.?: I choose not to answer this question Are you currently unemployed and looking for a job?: I choose not to answer this question Are you interested in more education?: I choose not to answer this question Please select the resources that you would like help with: None Currently or been in a relationship where the following occur: I choose not to answer THRIVE Score: 0 ADRIENNE-7 AMB Questionnaire ADRIENNE-7 Date ADRIENNE - 7 assessed: 05/30/24 Source: Developed by Drs. Fer Talbot, Carolina Alcantara, Prince Thompson and colleagues, with an educational jose from [employer]. Physical exam (Primary Care) Vital Signs: Last Vital Signs Pulse 75 08/15/24 11:03 BP 108/62 08/15/24 11:03 Pulse Ox 98 08/15/24 11:03 Oxygen Delivery Method Room Air 08/15/24 11:03 BMI result Body Mass Index 18.5 Tobacco/Smoking Status: Tobacco use Status Tobacco use date assessed 04/21/24 08/15/24 11:07 Patient Tobacco Use Status Current everyday Tobacco 08/15/24 11:07 Tobacco use type Cigarette 08/15/24 11:07 e-Cigarette/Vaping Use Never Used 08/15/24 11:07 Thrive Assessment: Date of Thrive Assessment Date Thrive assessed 05/30/24 08/15/24 11:07 Currently or been in a relationship where the following occur: I choose not to answer Coding Level of Care Code Est Pt Level 4 (91745) Diagnoses Abnormal weight loss R63.4 Neuropathy G62.9 Assessment & Plan Assessment & Plan (1) Abnormal weight loss: Code(s): R63.4 - Abnormal weight loss Category: Medical Plan: Labs ordered -follow up phone visit 1-2 weeks Will refer to gastroenterology for consideration of colonoscopy. Difficult colonoscopy in the past LDCT or CXR likely (2) Neuropathy: Code(s): G62.9 - Polyneuropathy, unspecified Category: Medical Plan: check labs Orders: Orders Complete Blood Count Auto Diff Today E07.9 - Disorder of thyroid, unspecified, G62.9 - Polyneuropathy, unspecified, R63.4 - Abnormal weight loss Comprehensive Met. Panel Today E07.9 - Disorder of thyroid, unspecified, G62.9 - Polyneuropathy, unspecified, R63.4 - Abnormal weight loss TSH reflex Free T4 Today E07.9 - Disorder of thyroid, unspecified, G62.9 - Polyneuropathy, unspecified, R63.4 - Abnormal weight loss Protein Electrophoresis, Serum Today E07.9 - Disorder of thyroid, unspecified, G62.9 - Polyneuropathy, unspecified, R63.4 - Abnormal weight loss Total Protein Urine Random Today E07.9 - Disorder of thyroid, unspecified, G62.9 - Polyneuropathy, unspecified, R63.4 - Abnormal weight loss Lyme IgG/IgM w/reflex to WB Today E07.9 - Disorder of thyroid, unspecified, G62.9 - Polyneuropathy, unspecified, R63.4 - Abnormal weight loss Pathologist Review - CBC Today G62.9 - Polyneuropathy, unspecified, R63.4 - Abnormal weight loss Vitamin B12 and Folate Today E07.9 - Disorder of thyroid, unspecified, G62.9 - Polyneuropathy, unspecified, R63.4 - Abnormal weight loss Hemoglobin A1c Today E07.9 - Disorder of thyroid, unspecified, G62.9 - Polyneuropathy, unspecified, R63.4 - Abnormal weight loss IRON PROFILE Today E07.9 - Disorder of thyroid, unspecified, G62.9 - Polyneuropathy, unspecified, R63.4 - Abnormal weight loss Referrals Gastroenterology Referral K59.00 - Constipation, unspecified, R63.4 - Abnormal weight loss Medications: New mirtazapine 15 mg PO BEDTIME 90 tabs 3RF
[2024-08-15 11:03] VITALS: BP 108/62; PULSE 75; O2SAT 98; BMI 18.5
== END 2024-08-15 11:28 | disposition home or self-care (01) ==
PROVIDERS: PCP Internal Medicine; Visit Provider Internal Medicine
DX: R63.4 Abnormal weight loss (principal); G62.9 Polyneuropathy, unspecified

== ENCOUNTER 2024-08-15 11:35 | Outpatient (REF) | payer OTHER, SELFPAY ==
[2024-08-15 14:15] LABS: MANUAL DIFF FLAG NO
[2024-08-15 14:19] LABS: Basophils Percent Auto 0.3 % (0-2); Eosinophils Absolute Auto 0.2 X10*3/uL (0.0-0.4); Eosinophils Percent Auto 2.6 % (0-4); Hematocrit 34.5 % (37.0-47.0); Hemoglobin 11.5 g/dl (12.0-16.0); Imm Gran Abs Auto 0.01 X10*3/uL (0.00-0.03); Imm Gran Pct Auto 0.2 % (0.0-0.4); Lymphocytes Absolute Auto 1.4 X10*3/uL (1.2-4.9); Lymphocytes Percent Auto 24.1 % (20-40); Mean Corpuscular HGB Conc 33.3 g/dl (31.0-35.0); Mean Corpuscular Hemoglobin 31.8 pg (27.0-33.0); Mean Corpuscular Volume 95.3 fL (80.0-98.0); Mean Platelet Volume 10.5 fL (9.4-12.3); Monocytes Absolute Auto 0.5 X10*3/uL (0.1-1.2); Monocytes Percent Auto 8.7 % (2-11); Neutrophils Absolute Auto 3.8 x10*3/uL (2.0-8.3); Neutrophils Percent Auto 64.1 % (45-73); Platelet Count 284 X10*3/uL (160-400); Red Blood Count 3.62 X10*6/uL (4.20-5.50); White Blood Count 5.9 X10*3/uL (4.8-10.8)
[2024-08-15 14:29] LABS: Estimated Average Glucose 108 mg/dL; Hemoglobin A1C 104.2999 umol/L; Hemoglobin A1c % 5.4 % (<6.0); Total Hemoglobin (HGBA1C) 2960.9357 umol/L
[2024-08-15 14:37] LABS: Alanine Aminotransferase 9 U/L (0-31); Albumin Level 4.1 g/dL (3.5-5.0); Alkaline Phosphatase 124 U/L (39-117); Anion Gap 12 (12-20); Aspartate Amino Transferase 20 U/L (5-31); Bilirubin Total 0.3 mg/dL (0.0-1.0); Blood Urea Nitrogen 14 mg/dL (9-16); Calcium 9.7 mg/dL (8.4-10.2); Carbon Dioxide 30 mmol/L (22-29); Chloride 99 mmol/L (96-108); Estimated Glomerular Filt Rate > 60; Glucose Random 92 mg/dL (60-115); Iron 40 mcg/dL (30-160); Percent Iron Saturation 14 % (15-50); Potassium 3.7 mmol/L (3.3-5.1); Sodium 137 mmol/L (135-145); Total Iron Binding Capacity 284 mcg/dL (228-428); Total Protein 7.2 g/dL (6.5-8.0); Unsaturated Iron Binding 244 ug/dL
[2024-08-15 14:48] LABS: Total Protein Urine Random 11 mg/dL (<12)
[2024-08-15 14:55] LABS: TSH reflex Free T4 8.48 uIU/mL (0.32-4.0)
[2024-08-15 15:03] LABS: Folate 7.8 ng/mL (> or = 4.0); Vitamin B12 706 pg/mL (200-900)
[2024-08-15 15:28] LABS: Free T4 (Free Thyroxine) 1.15 ng/dL (0.71-1.85)
[2024-08-18 12:04] LABS: Prot Elec - Albumin 4.2 g/dL (3.8-4.8); Prot Elec - Alpha1 0.4 g/dL (0.2-0.3); Prot Elec - Alpha2 0.9 g/dL (0.5-0.9); Prot Elec - Beta 1 0.4 g/dL (0.4-0.6); Prot Elec - Beta 2 0.3 g/dL (0.2-0.5); Prot Elec - Gamma 0.9 g/dL (0.8-1.7)
[2024-08-18 17:19] LABS: Lyme Abs Screen <0.90 index
== END 2024-08-15 11:36 | disposition home or self-care (01) ==
LOC: HO.WFDLDS 11:35
PROVIDERS: Visit Provider Internal Medicine
DX: E07.9 Disorder of thyroid, unspecified (principal); R63.4 Abnormal weight loss; G62.9 Polyneuropathy, unspecified; Z13.1 Encounter for screening for diabetes mellitus
CPT/HCPCS: 80053; 82607; 82746; 83036; 83540; 84156; 84165; 84439; 84443; 85025; 86617; 86618; 99212

== ENCOUNTER 2024-08-29 11:27 | Outpatient (AMB) | payer OTHER, SELFPAY ==
--- NOTE | 2024-08-29 11:34 | A.OFFPC_ITS ---
Intake Visit Reasons: phone fu medication/ clobestrol Intake Note: Discuss labs. Is requesting referral or xray of left foot due to neuropathy, numbness, tingling, pain. Needs steroid cream for rash on scalp, fingers, and toes. She she took triamcinolone 0.1 and 0.5 in the past. Requesting alternative for clobetisol. Salt Manager Required: No Allergies morphine Adverse Reaction (Verified 08/29/24 11:40) Blood pressure drops Tobacco use date assessed: 04/21/24 Dental Screening Dental Screen Date: 04/21/24 HPI HPI Comments History of Present Illness Details 69 year old female with no significant p ast medical history of COPD, hypothyroid, tobacco use, hearing loss presenting for follow up weight loss. Telehealth. Daughter accompanies building and construction manager Seen last month Patient reports a 40 pound weight loss since March. From our [place] ales there has been a 20 pound weight loss. She has been eating a lot to try and keep the weight on. She did start thyroid replacement for a markedly underactive thyroid in May. She reports ok appetite. She has been constipated for the past year. No blood in the stools. No abdominal pain, night sweats, no copd exacerbations. Sodium was low on labs. She has declined cancer screening in the past. Has been having some muscle, joint pain, pins and needle pain in the feet quite severe Labs with mild macrocytic anemia-normal b12. TSH markedly improved, normalized T4 Referral to GI pending-wants to change with to [facility] used to have colonoscopy with Dr Ellis who used pediatric scope for difficult colon Lost one more pound. Did not start remeron. Didnt not like listed side effect p rofile COPD-stable on trelegy Has hearing aid service dog. Is supposed to get her hearing aids next week Still doing CORE two days a week hand. Finished PT for leg Does all ADLs at home. Previously declined mammography, colonoscopy, bone density. Will pursue CT evaluation given weight loss. ROS see HPI PHYSICAL EXAM: Telehealth [facility] Medical History Imbalance Memory loss IBS (irritable bowel syndrome) Thyroid disease COPD (chronic obstructive pulmonary disease) Fracture of distal end of fibula Surgical History H/O: hysterectomy History of bladder surgery Family History Mother Asthma Thyroid disease Father Cardiovascular disease Social History Housing: Apartment Alcohol intake: never Patient Tobacco Use Status: Current everyday Tobacco user Tobacco use type: Cigarette Cigarette Packs Per Day: 0.5 Years Smoked: 50 e-Cigarette/Vaping Use: Never Used Second Hand Smoke Exposure: No service: No Current occupational status: retired Current occupational exposures/hazards: No Cognitive needs: No Hearing needs: Yes Vision needs: No Questionnaire Thrive Questionnaire Date Thrive assessed: 05/30/24 ADRIENNE-7 AMB Questionnaire ADRIENNE-7 Date ADRIENNE - 7 assessed: 05/30/24 Source: Developed by Drs. Fer Talbot, Carolina Alcantara, Prince Thompson and colleagues, with an educational jose from [employer]. Physical exam (Primary Care) Tobacco/Smoking Status: Tobacco use Status Tobacco use date assessed 04/21/24 08/29/24 11:35 Patient Tobacco Use Status Current everyday Tobacco 08/29/24 11:35 Tobacco use type Cigarette 08/29/24 11:35 e-Cigarette/Vaping Use Never Used 08/29/24 11:35 Thrive Assessment: Date of Thrive Assessment Date Thrive assessed 05/30/24 08/29/24 11:35 Telehealth Telehealth Telehealth Platform: [facility] Location of provider rendering services: practice address Location of patient: address on file Patient Identification confirmed using: Name, : No Telehealth method: voice only Patient verbally consented to treatment: Yes Patient verbally consented to billing insurance company: Yes Patient informed of any privacy concerns related to visit: Yes Minutes spent on Phone/Video with Pt.: 35 Coding Level of Care Code Est Pt Level 4 (85122) Complex EM visit Add On G2211 Diagnoses Abnormal weight loss R63.4 Thyroid disease E07.9 Assessment & Plan Assessment & Plan (1) Abnormal weight loss: Code(s): R63.4 - Abnormal weight loss Category: Medical Plan: CT chest, abd/pelvis ordered Referral pending to gastroenterology (2) Thyroid disease: Code(s): E07.9 - Disorder of thyroid, unspecified Category: Medical Plan: Will stay with current levothyroxine dosing. T4 has normalized. Mental status improvement Orders: Orders CT chest wo IV con 08/29/24 D64.9 - Anemia, unspecified, R63.4 - Abnormal weight loss CT abdomen pelvis w IV con 08/29/24 D64.9 - Anemia, unspecified, R63.4 - Abnormal weight loss Medications: New ciclopirox 8% 1 appl topical BEDTIME 6.6 mL 3RF 4 weeks
== END 2024-08-29 14:43 | disposition home or self-care (01) ==
LOC: HO.HMCFM 11:27
PROVIDERS: PCP Internal Medicine; Visit Provider Internal Medicine
DX: R63.4 Abnormal weight loss (principal); E07.9 Disorder of thyroid, unspecified

== ENCOUNTER → 2024-08-29 11:27 | Outpatient (BNVA) | payer OTHER, SELFPAY | PROVIDERS: PCP Internal Medicine; Visit Provider Internal Medicine | DX: R63.4 Abnormal weight loss (principal); E07.9 Disorder of thyroid, unspecified; J44.9 Chronic obstructive pulmonary disease, unspecified; Z79.899 Other long term (current) drug therapy | CPT/HCPCS: 99212 ==

== ENCOUNTER 2024-11-11 12:48 | Outpatient (REF) | payer OTHER, SELFPAY ==
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
[2024-11-11 15:14] LABS: Anion Gap 12 (12-20); Blood Urea Nitrogen 8 mg/dL (9-16); Calcium 9.7 mg/dL (8.4-10.2); Carbon Dioxide 29 mmol/L (22-29); Chloride 96 mmol/L (96-108); Estimated Glomerular Filt Rate > 60; Glucose Random 95 mg/dL (60-115); Potassium 4.1 mmol/L (3.3-5.1); Sodium 133 mmol/L (135-145); TSH reflex Free T4 3.34 uIU/mL (0.32-4.0)
== END 2024-11-11 12:49 | disposition home or self-care (01) ==
LOC: HO.LAB 12:48
PROVIDERS: PCP Internal Medicine; Visit Provider Internal Medicine
DX: R63.4 Abnormal weight loss (principal); E07.9 Disorder of thyroid, unspecified; G62.9 Polyneuropathy, unspecified
CPT/HCPCS: 36415; 80048; 84443

== ENCOUNTER 2024-11-12 08:57 | Outpatient (REF) | payer OTHER, SELFPAY ==
--- NOTE | ~2024-11-12 | CT_ITS ---
EXAMINATION: CT CHEST WITH CONTRAST CLINICAL INFORMATION: Weight loss, unintentional. COMPARISON: None available. TECHNIQUE: Multidetector volumetric CT imaging of the chest was obtained after the administration of 50 mL of Omnipaque 350 intravenous contrast without immediate adverse reactions. Axial MIP volume rendering provided. Sagittal and coronal reformatted images were obtained. This CT examination was performed using dose optimization techniques as appropriate, variously including the following: *Automated exposure control *Adjustment of mA and/or kV according to patient size (this includes techniques or standardized protocols for targeted exams where dose is matched to indication/reason for exam; i.e. extremities or head) *Use of iterative reconstruction technique DLP: 48+16.4 mGy centimeter. FINDINGS: Limited by patient's breathing motion artifact. FOILING MACHINE ADJUSTER: Deep inspiration. Upper extremities at the size of the head. Vascular clips in the right upper quadrant abdomen. LUNGS: No gross consolidation. Paraseptal emphysematous changes in the lung apices. No gross bronchiectasis or honeycombing. Intraluminal abnormality is extending from the distal trachea into the right mainstem bronchus. MEDIASTINUM: Soft tissue fullness in the subcarinal without discrete mass. No pericardial effusion. No aneurysm or dissection, thoracic aorta. Calcified plaques along the thoracic aortic wall and its main branches. PLEURA: No pleural effusion. No pneumothorax. AXILLA: No lymphadenopathy. UPPER ABDOMEN: 3.9 cm mixed density nodular lesion left adrenal gland. Cystic lesion upper pole left kidney. Mixed plaques in the abdominal aorta wall and the origin of the mesenteric arteries. OSSEOUS STRUCTURES: Multilevel spondylosis without acute fracture or gross listhesis. No gross lytic or blastic lesions. CT/CT chest w IV con IMPRESSION: Concerning for aspiration. Soft tissue fullness without a nodular lesion or lymphadenopathy, mediastinum. 2.9 cm nodular lesion left adrenal gland. Please refer to this CT abdomen report. Fleischner guidelines were followed. Electronically signed by: Jean Carlos Shay MD 11/12/2024 02:13 PM EST
--- NOTE | ~2024-11-12 | CT_ITS ---
EXAMINATION: CT ABDOMEN AND PELVIS WITH CONTRAST CLINICAL INFORMATION: Weight loss, nonintentional. COMPARISON: None available. TECHNIQUE: Multidetector volumetric images were obtained from the superior aspect of the liver through the pubic symphysis following administration 85 mL of Omnipaque 350 intravenous contrast. Sagittal and coronal reformatted images were obtained on the technologist's workstation. Oral contrast: No This CT examination was performed using dose optimization techniques as appropriate, variously including the following: *Automated exposure control *Adjustment of mA and/or kV according to patient size (this includes techniques or standardized protocols for targeted exams where dose is matched to indication/reason for exam; i.e. extremities or head) *Use of iterative reconstruction technique DLP: 272 mGy centimeter. FINDINGS: LUNG BASES: Nonspecific 3 mm groundglass nodule, right middle lobe. LIVER, GALLBLADDER, AND BILIARY TREE: Liver measures 17 cm. Subcentimeter, 2 mm low densities in the right hepatic lobe too small to be fully characterized. Portal veins, hepatic veins are patent. No intrahepatic biliary ductal dilatation. Status post cholecystectomy likely laparoscopic. Common bile duct measures 6 mm. PANCREAS: No focal mass. No peripancreatic fluid collection. No main pancreatic ductal dilatation. SPLEEN: 10 cm. No focal lesion. ADRENAL GLANDS: There is a 3.9 cm heterogeneous mixed density (54 Hounsfield units) nodule in the left adrenal gland without focal calcifications. No nodular lesion in the right adrenal gland. KIDNEYS AND URETERS: Bilateral, multifocal and different sizes well-defined round nonenhancing fluid density lesions in the kidneys, the largest in the lower pole of the right kidney measures 4 cm and the largest in the left kidney measures 1.5 cm in the upper pole. No gross renal mass or hydronephrosis. Normal enhancement pattern of the renal parenchyma. BLADDER: Fluid-filled. GASTROINTESTINAL TRACT: There is an intraluminal hypodensity within the duodenal jejunal junction which measures 44 Hounsfield units. No intestinal obstruction pattern. Abundant stool in the large intestine. Numerous diverticula in the sigmoid colon. No pneumoperitoneum. No ascites. No peripheral enhancing fluid collection in the peritoneal cavity. The appendix is normal. ABDOMINAL WALL: No gross hernia, umbilical. LYMPH NODES: No gross lymphadenopathy, mesenteric or retroperitoneal. VASCULAR: Mixed plaques throughout the abdominal aorta wall and the origin of the mesenteric arteries and main iliac arteries and main renal arteries. No aneurysm or dissection, abdominal aorta. PELVIC VISCERA: No gross masses. OSSEOUS STRUCTURES: Castellvi type I sacralization. Sclerosis and vacuum phenomenon and the sacroiliac joints. Osteopenia versus osteoporosis. Subchondral cyst formation and bone marrow inhomogeneity and the femoral heads. Probably bony island both femoral heads and left femoral neck. No acute fracture or gross listhesis. No acute fracture in the bony pelvis.. CT/CT abdomen pelvis w IV con IMPRESSION: Questionable intraluminal abnormality versus artifactual in the duodenal jejunal junction. Recommend direct inspection. 3.9 cm lesion, left adrenal gland. Nonspecific. Bilateral renal cysts. Hepatomegaly, mild. Atherosclerosis disease. Sigmoid colon diverticular disease. Fleischner guidelines were followed. Electronically signed by: Jean Carlos Shay MD 11/12/2024 01:27 PM NICKI
--- OUTSIDE RECORDS SUMMARY | 2024-11-12 09:06 | XMS_ITS | Clinical Summary ---
Author Organization [facility] it Address [address] [place] [address] Care Team Providers Care Instructional Aide Name Role Phone Kel Mcginnis MD Primary [...] PROCEDURE: HISTORICAL DELIVERY OTHER SURGICAL HISTORY PROCEDURE: [place] CLOSURE ENTEROSTOMY LG/SMALL INTESTINE Medical History Medical History Date Comments Hypothyroid DX:Hypothyroid IBS (irritable bowel syndrome) D X:IBS (irritable bowel syndrome) Emphysema/COPD (CMS/HCC) DX:Emph ysema/COPD (HCC) Joint pain DX:Joint pain Hearing loss DX:Hearing loss Memory loss DX:Memory loss Family history of emotional abuse DX:Family history of emotional abuse Elevated LFTs DX:Elevated LFTs ; COMMENT: l[facility] at [facility] Gallstones DX:Gallstones Calculus of gallbladder with biliary [...] age to complete this topic Care Teams Instructional Aide Relationship Specialty Start Date End Date Kel Mcginnis MD [address] [place] [id number] PCP - General 06/15/23
[2024-11-12] MEDS: iohexoL 350 MG/ML 100 ML INFUS..BTL IV (09:41)
== END 2024-11-12 08:58 | disposition home or self-care (01) ==
LOC: HO.CT 08:57
PROVIDERS: PCP Internal Medicine; Visit Provider Internal Medicine
DX: R63.4 Abnormal weight loss (principal); D64.9 Anemia, unspecified; J42 Unspecified chronic bronchitis
CPT/HCPCS: 71260; 74177; Q9967

== ENCOUNTER → 2024-11-12 08:59 | Outpatient (BNV) | payer OTHER, SELFPAY | PROVIDERS: PCP Internal Medicine; Visit Provider Radiology Diagnostic Radiology | DX: R63.4 Abnormal weight loss (principal); D35.02 Benign neoplasm of left adrenal gland; N28.1 Cyst of kidney, acquired; R16.0 Hepatomegaly, not elsewhere classified | CPT/HCPCS: 71260; 74177 ==

== ENCOUNTER 2024-12-03 12:26 | Outpatient (AMB) | payer OTHER, SELFPAY ==
--- NOTE | 2024-12-03 12:28 | A.OFFVIS_ITS ---
Vital Signs 12/03/24 12:29 Height 5 ft 4.29 in Weight 105 lb BMI 17.9 BP 126/53 L Blood Pressure Location Lt brachial Position Sitting Pulse 72 Intake Visit Reasons: Weight loss / Constipation Intake Note: Taty presents in the office as a new patient for weight loss and constipation. CC: She states that her last colonoscopy her bowels were twisted very badly and she needed a pediatric. She states she has constipation all the time. Pains in the stomach - takes Levsin at times for the stomach pains. States that she had to dis-imact herself due to the constipation and at times she has explosive diarrhea. Diarrhea is not frequent but when it happens its severe. Allergies morphine Adverse Reaction (Verified 12/03/24 12:33) Blood pressure drops HPI Comments Details: 69 y.o with PMH COPD, hypothyroid, tobacco use, hearing loss who has been referred to our office for unintentional weight loss. Pt accompanied by her daughter who fills in for as per pt's request history as pt hard of hearing. Reports almost 40 lbs weight loss in 8 months. BMI 17 now. Assoc with constipation that started almost a year ago. Pt reports stool caliber has changed and are thin pencil like. No blood. Last colo was over 15 years ago and incomplete due to looping per their report (Dr Ellis). Also has abdominal which the pt has had on and off for decades but more recently assoc with food intake - abd pain worse when hungry, better after food. No N/V/D. No blood in stool. Pt currently smokes 2 cigs a day. Prev 2PPD x 40y. No etOH use. Pertinent findings from CT chest/abd/pel: luminal irregularity in trachea going to R main stem bronchus. Mediastinal soft tissue mass. Hypodensity at duo-jej junction. Adrenal gland lesion. [facility] Medical History (Updated 12/03/24 @ 13:32 by Karin Kyle MD) Imbalance Memory loss IBS (irritable bowel syndrome) Thyroid disease COPD (chronic obstructive pulmonary disease) Fracture of distal end of fibula Surgical History (Updated 12/03/24 @ 12:35 by CÉSAR Mon) Hx of colonoscopy History of esophagogastroduodenoscopy (EGD) H/O: hysterectomy History of bladder surgery Family History Mother Asthma Thyroid disease Father Cardiovascular disease Social History Housing: Apartment Alcohol intake: never Patient Tobacco Use Status: Current everyday Tobacco user Tobacco use type: Cigarette Cigarette Packs Per Day: 0.5 Years Smoked: 50 e-Cigarette/Vaping Use: Never Used Second Hand Smoke Exposure: No service: No Current occupational status: retired Current occupational exposures/hazards: No Cognitive needs: No Hearing needs: Yes Vision needs: No Review of Systems Const All systems reviewed & are unremarkable except as noted in HPI and below Physical Exam Vital Signs: Last Vital Signs Pulse 72 12/03/24 12:29 BP 126/53 L 12/03/24 12:29 BMI result Body Mass Index 17.9 No apparent distress, undernourished Bitemporal wasting Nonicteric Abdomen soft, nondistended Alert and oriented x3, normal gait Assessment & Plan Assessment & Plan (1) Abnormal weight loss: Code(s): R63.4 - Abnormal weight loss Category: Medical (2) Change in stool caliber: Code(s): R19.5 - Other fecal abnormalities Category: Medical (3) Small bowel lesion: Code(s): K63.9 - Disease of intestine, unspecified Category: Medical (4) Abnormal CT scan, chest: Code(s): R93.89 - Abnormal findings on diagnostic imaging of other specified body structures Category: Medical (5) Lesion of adrenal gland: Code(s): E27.9 - Disorder of adrenal gland, unspecified Category: Medical Plan Reviewed that will recommend bidirectional endoscopy for w.up of unintentional weight loss, direct visualization of small bowel given lesion reported and for e valuation of change in stool caliber and new onset constipation. However, pt hesitant to pursue colonoscopy at this time due to prev experience. With mutual decision making has elected to get barium enema done - if actionable findings will decide re colo + egd. If barium enema negative, egd only for duodeno-jejunal lesion. Labs also ordered to r/o chronic infections causing weight loss. Close follow up in 4 weeks. Additionally, pt was also advised to follow up with PCP re other findings in mediastinum and adrenal gland Orders: Orders FL barium enema Today R63.4 - Abnormal weight loss Ferritin Today R63.4 - Abnormal weight loss Hepatitis A IgG Today R63.4 - Abnormal weight loss Hepatitis B Surface Antigen Today R63.4 - Abnormal weight loss Hepatitis B Viral DNA Qn Today R63.4 - Abnormal weight loss IRON PROFILE Today R63.4 - Abnormal weight loss Liver Panel Today R63.4 - Abnormal weight loss Alpha Fetoprotein Today R63.4 - Abnormal weight loss Hepatitis B Core Antibody Today R63.4 - Abnormal weight loss Hepatitis B Surface Antibody Today R63.4 - Abnormal weight loss Hepatitis C Antibody Today R63.4 - Abnormal weight loss HIV Ab/Ag Today R63.4 - Abnormal weight loss T Spot TB Today R63.4 - Abnormal weight loss Coding Level of Care Code New Pt Level 5 (68681) Complex EM visit Add On G2211 Diagnoses Abnormal weight loss R63.4 Change in stool caliber R19.5 Small bowel lesion K63.[address] scan, chest R93.89 Lesion of adrenal gland E27.9
[2024-12-03 12:29] VITALS: BP 126/53; PULSE 72; BMI 17.9
--- OUTSIDE RECORDS SUMMARY | 2024-12-03 14:27 | XMS_ITS | Clinical Summary ---
Author Organization [facility] [address] it Address [address] [place] [address] Care Team Providers Care Distance Learning Coordinator Name Role Phone Kel Mcginnis MD Primary [...] PROCEDURE: HISTORICAL DELIVERY OTHER SURGICAL HISTORY PROCEDURE: [place] CLOSURE ENTEROSTOMY LG/SMALL INTESTINE Medical History Medical History Date Comments Hypothyroid DX:Hypothyroid IBS (irritable bowel syndrome) D X:IBS (irritable bowel syndrome) Emphysema/COPD (CMS/HCC) DX:Emph ysema/COPD (HCC) Joint pain DX:Joint pain Hearing loss DX:Hearing loss Memory loss DX:Memory loss Family history of emotional abuse DX:Family history of emotional abuse Elevated LFTs DX:Elevated LFTs ; COMMENT: luke at [facility] Gallstones DX:Gallstones Calculus of gallbladder with [...] age to complete this topic Care Teams Distance Learning Coordinator Relationship Specialty Start Date End Date Kel Mcginnis MD [address] [place] [id number] PCP - General 06/15/23
== END 2024-12-03 13:19 | disposition home or self-care (01) ==
LOC: HO.HGI 12:27
PROVIDERS: PCP Internal Medicine; Visit Provider Internal Medicine
DX: R63.4 Abnormal weight loss (principal); R19.5 Other fecal abnormalities; K63.9 Disease of intestine, unspecified; R93.89 Abnormal findings on diagnostic imaging of other specified body structures; E27.9 Disorder of adrenal gland, unspecified
CPT/HCPCS: 99204; G2211

== ENCOUNTER → 2024-12-03 12:26 | Outpatient (BNVA) | payer OTHER, SELFPAY | PROVIDERS: PCP Internal Medicine; Visit Provider Internal Medicine | DX: R63.4 Abnormal weight loss (principal); R19.5 Other fecal abnormalities; K63.9 Disease of intestine, unspecified; R93.89 Abnormal findings on diagnostic imaging of other specified body structures; E27.9 Disorder of adrenal gland, unspecified | CPT/HCPCS: 99202 ==

== ENCOUNTER 2024-12-04 10:26 | Outpatient (REF) | payer OTHER, SELFPAY ==
[2024-12-04 11:50] LABS: Alanine Aminotransferase 17 U/L (0-31); Albumin Level 4.4 g/dL (3.5-5.0); Alkaline Phosphatase 101 U/L (39-117); Aspartate Amino Transferase 26 U/L (5-31); Bilirubin Direct 0.1 mg/dL (0.0-0.5); Bilirubin Total 0.4 mg/dL (0.0-1.0); Iron 78 mcg/dL (30-160); Percent Iron Saturation 28 % (15-50); Total Iron Binding Capacity 280 mcg/dL (228-428); Total Protein 7.9 g/dL (6.5-8.0); Unsaturated Iron Binding 202 ug/dL
[2024-12-04 12:03] LABS: Ferritin 159 ng/mL (10-250); HBS Num1 1.28 mIU/mL (0-7.99); HBc Num1 0.06 S/CO (0.00-0.79); HBsAGNum1 0.28 S/CO (0.00-0.99); HIV AB/AG Nonreactive (Nonreactive); HIV Num 1 0.07 S/CO (0.00-0.99); Hepatitis B Core Antibody Nonreactive (Nonreactive); Hepatitis B Surface Antigen Negative (Negative); ~HepC Num1 0.13 S/CO (0.00-0.79); ~Hepatitis B Surface Antibody NONREACTIVE (Nonreactive); ~Hepatitis C Antibody Nonreactive (Nonreactive)
--- OUTSIDE RECORDS SUMMARY | 2024-12-04 13:04 | XMS_ITS | Clinical Summary ---
Author Organization [facility] it Address [address] [place] [address] Care Team Providers Care Auto Service Dispatcher Name Role Phone Kel Mcginnis MD Primary [...] PROCEDURE: HISTORICAL DELIVERY OTHER SURGICAL HISTORY PROCEDURE: [place] CLOSURE ENTEROSTOMY LG/SMALL INTESTINE Medical History Medical History Date Comments Hypothyroid DX:Hypothyroid IBS (irritable bowel syndrome) D X:IBS (irritable bowel syndrome) Emphysema/COPD (CMS/HCC) DX:Emph ysema/COPD (HCC) Joint pain DX:Joint pain Hearing loss DX:Hearing loss Memory loss DX:Memory loss Family history of emotional abuse DX:Family history of emotional abuse Elevated LFTs DX:Elevated LFTs ; COMMENT: luke at [facility] Gallstones DX:Gallstones Calculus of gallbladder [...] age to complete this topic Care Teams Auto Service Dispatcher Relationship Specialty Start Date End Date Kel Mcginnis MD [address] [place] [phone] PCP - General 06/15/23
[2024-12-05 13:44] LABS: Alpha Fetoprotein 4.4 ng/mL; Hepatitis B Viral DNA Qn - cp NOT DETECTED Log IU/mL (NOT DETECTED); Hepatitis B Viral DNA Qn-IU/mL NOT DETECTED (NOT DETECTED)
[2024-12-10 08:51] LABS: Hepatitis A Antibody IgG Nonreactive (Nonreactive); ~Hepatitis A Antibody IgG 0.23 S/CO (0.00-0.99)
== END 2024-12-04 10:27 | disposition home or self-care (01) ==
LOC: HO.LAB 10:26
PROVIDERS: PCP Internal Medicine; Visit Provider Internal Medicine
DX: R63.4 Abnormal weight loss (principal)
CPT/HCPCS: 36415; 80076; 82105; 82728; 83540; 86481; 86704; 86706; 86708; 86803; 87340; 87389; 87517

== ENCOUNTER 2024-12-09 10:35 | Outpatient (REF) | payer OTHER, SELFPAY ==
--- NOTE | ~2024-12-09 | FL_ITS ---
EXAMINATION: XR BARIUM ENEMA CLINICAL INFORMATION: Abnormal weight loss. COMPARISON: None available. TECHNIQUE: A KUB was obtained. Retrograde barium was inserted through a balloon inflated rectal catheter under fluoroscopy. FINDINGS: On initial images there are numerous diverticuli seen in sigmoid colon with narrowing seen lateral fluoroscopy images. Subsequently there is retrograde progression of barium through the entire colon to the level of cecum. No reflux was visualized into the ileocecal junction. No obstructive or constrictive lesion seen in the rest of the colon. There are multiple filling defects seen throughout the colon consistent with constipation. On the postevacuation images there is dilatation of appendix and likely minimal reflux into the terminal ileum. Patient is unable to evacuate barium in spite of several attempts patient going to the bathroom. FLUOROSCOPY TIME: 1 minute 57 seconds DOSE AREA PRODUCT: [id number] uGy-m2 (microgray-meter squared) FL/FL barium enema IMPRESSION: Colonic diverticulosis most prominent in the sigmoid region with mild spasm or narrowing. Multiple diffuse filling defects seen throughout the colon consistent with fecal material. Appendix is visualized and appears normal. Electronically signed by: Nelson Briscoe MD 12/10/2024 03:43 PM EDT
== END 2024-12-09 10:36 | disposition home or self-care (01) ==
LOC: HO.XRAY 10:35
PROVIDERS: PCP Internal Medicine; Visit Provider Internal Medicine
DX: R63.4 Abnormal weight loss (principal)
CPT/HCPCS: 74270

== ENCOUNTER → 2024-12-09 10:36 | Outpatient (BNV) | payer OTHER, SELFPAY | PROVIDERS: PCP Internal Medicine; Visit Provider Radiology Diagnostic Radiology | DX: R63.4 Abnormal weight loss (principal); K57.90 Diverticulosis of intestine, part unspecified, without perforation or abscess without bleeding | CPT/HCPCS: 74270 ==

== ENCOUNTER 2024-12-29 11:42 | Outpatient (AMB) | payer OTHER, SELFPAY ==
--- NOTE | 2024-12-29 11:47 | MHC.PC.OV ---
Vital Signs 12/29/24 11:52 BMI Reason not done Patient refused/unable BP 106/56 L Blood Pressure Location Lt brachial Position Sitting Respiration 14 Pulse 81 Pulse Source Pulse Oximeter Pulse Oximetry (%) 97 Oxygen Delivery Method Room Air Intake Visit Reasons: f/u Intake Note: Follow up Pipe Caulker Required: No Allergies morphine Adverse Reaction (Verified 12/29/24 11:50) Blood pressure drops Tobacco use date assessed: 12/29/24 Dental Screening Dental Screen Date: 04/21/24 HPI HPI Comments History of Present Illness Details 69 year old female with no significant past medical history of COPD, hypothyroid, tobacco use, hearing loss, weight loss presenting for follow up Weight loss: [place] [facility] [place]. Recent barium study. Dr Ellis previously who used pediatric scope for difficult colon. Weight has stabilized even able to gain a few pounds. Combined -CT chest/abdomen/pelvis abnormal finding LUNGS: No gross consolidation. No gross bronchiectasis or honeycombing. Intraluminal abnormality is extending from the distal trachea into the right mainstem bronchus. MEDIASTINUM: Soft tissue fullness in the subcarinal without discrete mass. ADRENAL GLANDS: There is a 3.9 cm heterogeneous mixed density (54 Hounsfield units) nodule in the left adrenal gland without focal calcifications. No nodular lesion in the right adrenal gland. KIDNEYS AND URETERS: Bilateral, multifocal and different sizes well-defined round nonenhancing fluid density lesions in the kidneys, the largest in the lower pole of the right kidney measures 4 cm and the largest in the left kidney measures 1.5 cm in the upper pole. GASTROINTESTINAL TRACT: There is an intraluminal hypodensity within the duodenal jejunal junction which measures 44 Hounsfield units. Hypothyroid-very improved memory and functioning on thyroid replacement therapy Neuro: Improved memory, cognition. Still with generalized weakness, orthostasis, fairly severe COPD. [facility] seeing-recommend shower chair, rail and recliner for safety COPD-stable on trelegy Has hearing aid service dog. Is supposed to get her hearing aids next week Still doing CORE two days a week hand. Finished PT for leg Does all ADLs at home. Previously declined mammography, colonoscopy, bone density. Will pursue CT evaluation given weight loss. ROS see HPI PHYSICAL EXAM: GENERAL: Alert and oriented x 3. NAD EYES: EOMI. Anicteric. HENT: Moist mucous membranes. No scleral icterus. No cervical lymphadenopathy. LUNGS: Clear to auscultation bilaterally. CARDIOVASCULAR: Regular rate and rhythm. No murmur. No JVD. ABDOMEN: Soft, non-tender +bs EXTREMITIES: No edema. Non-tender. SKIN: No rashes or lesions. Warm. NEUROLOGIC: No focal neurological deficits. CN II-XII grossly intact PSYCHIATRIC: Cooperative. Appropriate mood and affect [facility] Medical History Imbalance Memory loss IBS (irritable bowel syndrome) Thyroid disease COPD (chronic obstructive pulmonary disease) Fracture of distal end of fibula Surgical History Hx of colonoscopy History of esophagogastroduodenoscopy (EGD) H/O: hysterectomy History of bladder surgery Family History Mother Asthma Thyroid disease Father Cardiovascular disease Social History Housing: Apartment Alcohol intake: never Patient Tobacco Use Status: Current everyday Tobacco user Tobacco use type: Cigarette Cigarette Packs Per Day: 0.25 Years Smoked: 50 e-Cigarette/Vaping Use: Never Used Second Hand Smoke Exposure: No service: No Current occupational status: retired Current occupational exposures/hazards: No Cognitive needs: No Hearing needs: Yes Vision needs: No Questionnaire PHQ-9 Over the last 2 weeks, how often have you been bothered by any of the following problems? 1. Little interest or pleasure in doing things: not at all 2. Feeling down, depressed, or hopeless: not at all 4. Feeling tired or having little energy: not at all 5. Poor appetite or overeating: not at all 6. Feeling bad about yourself - or that you are a failure or have let yourself or your family down: not at all 7. Trouble concentrating on things, such as reading the newspaper or watching television: not at all 8. Moving or speaking so slowly that other people could have noticed. Or the opposite - being so fidgety or restless that you have been moving around a lot more than usual: not at all 9. Thoughts that you would be better off or of hurting yourself in some way: not at all Source: Developed by Drs. Fer Talbot, Carolina Alcantara, Prince Thompson and colleagues, with an educational jose from [employer]. Thrive Questionnaire Date Thrive assessed: 05/30/24 I am a: Patient What is your living situation today?: I choose not to answer this question Within the past 12 months, did the food you bought not last and you didn't have the money to get more?: I choose not to answer this question Within the past 12 months, did you worry whether your food would run out before you got money to buy more?: I choose not to answer this question Do you have trouble paying for medicines?: I choose not to answer this question Do you have trouble getting transportation to medical appointments?: I choose not to answer this question Do you have trouble paying your heating and electricity bill?: I choose not to answer this question Do you have trouble taking care of your child, family member or friend?: I choose not to answer this question Do you have trouble with day-to-day activities such as bathing, preparing meals, shopping, managing finances, etc.?: I choose not to answer this question Are you currently unemployed and looking for a job?: I choose not to answer this question Are you interested in more education?: I choose not to answer this question Please select the resources that you would like help with: None Currently or been in a relationship where the following occur: I choose not to answer THRIVE Score: 0 AUDIT C Alcohol Use Questionnaire (AUDIT-C) 1. How often do you have a drink containing alcohol?: Never Total Score: 0 ADRIENNE-7 AMB Questionnaire ADRIENNE-7 Date ADRIENNE - 7 assessed: 05/30/24 Feeling nervous, anxious, or on edge: 0 = Not at all Not being able to stop or control worryin = Not at all Worrying too much about different things: 0 = Not at all Trouble relaxin = Not at all Being so restless that it is hard to sit still: 0 = Not at all Becoming easily annoyed or irritable: 0 = Not at all Feeling afraid as if something awful might happen: 0 = Not at all Total ADRIENNE-7 score (0-4 normal; 5-9 mild; 10-14 moderate; 15-21 severe): 0 Source: Developed by Drs. Fer Talbot, Carolina Alcantara, Prince Thompson and colleagues, with an educational jose from [employer]. Physical exam (Primary Care) Tobacco/Smoking Status: Tobacco use Status Tobacco use date assessed 04/21/24 12/29/24 11:50 Patient Tobacco Use Status Current everyday Tobacco 12/29/24 11:50 Tobacco use type Cigarette 12/29/24 11:50 e-Cigarette/Vaping Use Never Used 12/29/24 11:50 Thrive Assessment: Date of Thrive Assessment Date Thrive assessed 05/30/24 12/29/24 11:50 Currently or been in a relationship where the following occur: I choose not to answer Coding Level of Care Code Est Pt Level 5 (27920) Diagnoses Generalized weakness R53.1 Poor balance R26.89 Chronic bronchitis, unspecified chronic bronchitis type J42 COPD type: chronic bronchitis Chronic bronchitis type: unspecified Thyroid disease E07.9 Abnormal weight loss R63.4 Time Spent (min) 48 Assessment & Plan Assessment & Plan (1) Generalized weakness: Code(s): R53.1 - Weakness Category: Medical (2) Poor balance: Code(s): R26.89 - Other abnormalities of gait and mobility Category: Medical (3) COPD (chronic obstructive pulmonary disease): Code(s): J44.9 - Chronic obstructive pulmonary disease, unspecified Category: Medical Qualifiers: COPD type: chronic bronchitis Chronic bronchitis type: unspecified Qualified Code(s): J42 - Unspecified chronic bronchitis (4) Thyroid disease: Code(s): E07.9 - Disorder of thyroid, unspecified Category: Medical (5) Abnormal weight loss: Code(s): R63.4 - Abnormal weight loss Category: Medical Plan Will continue follow up with GI for consideration of evaluation of abnormal imaging and weight loss Declines work up/endocrine referral for adrenal lesion Could consider repeat CT chest in one year for 3mm lesion. Currently declines Hypothyroid-stable on levothyroxine Generalized weakness, orthostasis etc-DME ordered Medications: New [Shower Chair] As directed 1 ea 0RF J42 - Unspecified chronic bronchitis, R26.89 - Other abnormalities of gait and mobility, R53.1 - Weakness [shower bar] As directed 1 ea 0RF E27.9 - Disorder of adrenal gland, unspecified, R26.89 - Other abnormalities of gait and mobility, R53.1 - Weakness [shower bar] As directed 1 ea 0RF E27.9 - Disorder of adrenal gland, unspecified, R26.89 - Other abnormalities of gait and mobility, R53.1 - Weakness [Shower Chair] As directed 1 ea 0RF J42 - Unspecified chronic bronchitis, R26.89 - Other abnormalities of gait and mobility, R53.1 - Weakness [Recliner] As directed 1 ea 0RF I95.1 - Orthostatic hypotension, R26.89 - Other abnormalities of gait and mobility, R53.1 - Weakness [Recliner] As directed 1 ea 0RF I95.1 - Orthostatic hypotension, R26.89 - Other abnormalities of gait and mobility, R53.1 - Weakness
[2024-12-29 11:52] VITALS: BP 106/56; PULSE 81; RESP 14; O2SAT 97
--- OUTSIDE RECORDS SUMMARY | 2024-12-29 14:12 | XMS_ITS | Clinical Summary ---
Author Organization [facility] it Address [address] [place] [address] Care Team Providers Care Mechanical Operator Name Role Phone Kel Mcginnis MD Primary [...] LFTs DX:Elevated LFTs ; COMMENT: luke at [facility] Gallstones DX:Gallstones Calculus of gallbladder with [...] 2024 Influenza Vaccine (#1) 2024 RSV Immunization Adult Patie nts (1 - 1-dose 75+ series) 02/07/2031 HIB [...] age to complete this topic Care Teams Mechanical Operator Relationship Specialty Start Date End Date Kel Mcginnis MD [address] [place] [id number] PCP - General 06/15/23
== END 2024-12-29 12:17 | disposition home or self-care (01) ==
LOC: HO.HMCFM 11:43
PROVIDERS: PCP Internal Medicine; Visit Provider Internal Medicine
DX: R53.1 Weakness (principal); R26.89 Other abnormalities of gait and mobility; J42 Unspecified chronic bronchitis; E07.9 Disorder of thyroid, unspecified; R63.4 Abnormal weight loss

== ENCOUNTER → 2024-12-29 11:42 | Outpatient (BNVA) | payer OTHER, SELFPAY | PROVIDERS: PCP Internal Medicine; Visit Provider Internal Medicine | DX: J44.9 Chronic obstructive pulmonary disease, unspecified (principal); J42 Unspecified chronic bronchitis; I95.1 Orthostatic hypotension; E03.9 Hypothyroidism, unspecified; R53.1 Weakness; R26.89 Other abnormalities of gait and mobility; R63.4 Abnormal weight loss; E07.9 Disorder of thyroid, unspecified | CPT/HCPCS: 99212 ==

== ENCOUNTER 2024-12-31 11:26 | Outpatient (AMB) | payer OTHER, SELFPAY ==
--- NOTE | 2024-12-31 11:29 | A.OFFVIS_ITS ---
Vital Signs 12/31/24 11:30 Height 5 ft 4.29 in Weight 107 lb BMI 18.2 BP 124/50 L Blood Pressure Location Lt brachial Position Sitting Pulse 77 Intake Visit Reasons: 4 wks Intake Note: Taty presents in the office as a 4 week follow up. CC: here for results to her BA swallow. Allergies morphine Adverse Reaction (Verified 12/29/24 11:50) Blood pressure drops HPI Comments Details: 69 y.o with PMH COPD, hypothyroid, tobacco use, hearing loss who has been referred to our office for unintentional weight loss. Pt accompanied by her daughter who fills in for as per pt's request history as pt hard of hearing. Reports almost 40 lbs weight loss in 8 months. BMI 17 now. Assoc with constipation that started almost a year ago. Pt reports stool caliber has changed and are thin pencil like. No blood. Last colo was over 15 years ago and incomplete due to looping per their report (Dr Ellis). Also has abdominal which the pt has had on and off for decades but more recently assoc with food intake - abd pain worse when hungry, better after food. No N/V/D. No blood in stool. Pt currently smokes 2 cigs a day. Prev 2PPD x 40y. No etOH use. Pertinent findings from CT chest/abd/pel: luminal irregularity in trachea going to R main stem bronchus. Mediastinal soft tissue mass. Hypodensity at duo-jej junction. Adrenal gland lesion. 12/31/24: Here for follow up with her daugher. Results of narium enema reviewed that likely diverticular stricture but underlying malignancy not ruled out. Pt and daughter would like to hold off any procedures for now as they would not like to pursue any medical or surgical intervention if this is a malignant stricture. They wish to cont wiht symptomatic managemnt at this time. They have also elective similar management strategy for ?tracheal mass. COUNT INCLUDES THE [facility] Medical History Imbalance Memory loss IBS (irritable bowel syndrome) Thyroid disease COPD (chronic obstructive pulmonary disease) Fracture of distal end of fibula Surgical History Hx of colonoscopy History of esophagogastroduodenoscopy (EGD) H/O: hysterectomy History of bladder surgery Family History Mother Asthma Thyroid disease Father Cardiovascular disease Social History Housing: Apartment Alcohol intake: never Patient Tobacco Use Status: Current everyday Tobacco user Tobacco use type: Cigarette Cigarette Packs Per Day: 0.25 Years Smoked: 50 e-Cigarette/Vaping Use: Never Used Second Hand Smoke Exposure: No service: No Current occupational status: retired Current occupational exposures/hazards: No Cognitive needs: No Hearing needs: Yes Vision needs: No Review of Systems Const All systems reviewed & are unremarkable except as noted in HPI and below Physical Exam Vital Signs: Last Vital Signs Pulse 77 12/31/24 11:30 BP 124/50 L 12/31/24 11:30 BMI result Body Mass Index 18.2 No apparent distress, undernourished Bitemporal wasting Nonicteric Abdomen soft, nondistended Alert and oriented x3, normal gait Results Reviewed Results Reviewed: 12/09/24: Colonic diverticulosis most prominent in the sigmoid region with mild spasm or narrowing. Multiple diffuse filling defects seen throughout the colon consistent with fecal material. Appendix is visualized and appears normal. Assessment & Plan Assessment & Plan (1) Change in stool caliber: Code(s): R19.5 - Other fecal abnormalities Category: Medical (2) Diverticulosis: Code(s): K57.90 - Diverticulosis of intestine, part unspecified, without perforation or abscess without bleeding Category: Medical (3) Anemia: Code(s): D64.9 - Anemia, unspecified Category: Medical (4) Abnormal weight loss: Code(s): R63.4 - Abnormal weight loss Category: Medical Plan As above, flex sig offered for evaluation of L side colon given findings on barium enema and difficulty evacuating rectum post enema. However she would like to hold as outlined above. Pt and daughter have elected for symptomatic management only and would like to hold any diagnostic procedures for now with the understanding that a malignant process is not ruled out until direct visualization is performed. Respecting their decision, they were educated to cont low residue diet and miralax 1-2 times a day to keep stool soft/liquidy to avoid large bowel obstruction. Follow up as needed with GI Medications: New polyethylene glycol 3350 (Miralax) 17 grams PO DAILY 476 grams 1RF 90 days Coding Level of Care Code Est Pt Level 4 (89917) Diagnoses Change in stool caliber R19.5 Diverticulosis K57.90 Anemia D64.9 Abnormal weight loss R63.4
[2024-12-31 11:30] VITALS: BP 124/50; PULSE 77; BMI 18.2
--- OUTSIDE RECORDS SUMMARY | 2024-12-31 13:34 | XMS_ITS | Clinical Summary ---
Author Organization [facility] it Address [address] [place] [address] Care Team Providers Care Magazine Grinder Loader Name Role Phone Kel Mcginnis MD Primary [...] PROCEDURE: HISTORICAL DELIVERY OTHER SURGICAL HISTORY PROCEDURE: MD CLOSURE ENTEROSTOMY LG/SMALL INTESTINE Medical History Medical History Date Comments Hypothyroid DX:Hypothyroid IBS (irritable bowel syndrome) D X:IBS (irritable bowel syndrome) Emphysema/COPD (CMS/HCC) DX:Emph ysema/COPD (HCC) Joint pain DX:Joint pain Hearing loss DX:Hearing loss Memory loss DX:Memory loss Family history of emotional abuse DX:Family history of emotional abuse Elevated LFTs DX:Elevated LFTs ; COMMENT: luke at [facility] Gallstones DX:Gallstones Calculus of gallbladder with [...] - 2023-2 5 season) 2024 Influenza Vaccine (Season Ended) 2025 RSV Immunization Adult Patie nts (1 - [...] age to complete this topic Meningococcal B Vaccine Aged Out No l onger eligible based on patient's age to complete this topic RSV Immunization Patients Un michael 20 months Aged Out No longer eligible b ased on patient's age to complete this topic Varicella Vaccines Aged Out No longer eligible based on patient's age to complete this topic Care Teams Magazine Grinder Loader Relationship Specialty Start Date End Date Kel Mcginnis MD [address] [place] [id number] PCP - General 06/15/23
== END 2024-12-31 12:42 | disposition home or self-care (01) ==
LOC: HO.HGI 11:27
PROVIDERS: PCP Internal Medicine; Visit Provider Internal Medicine
DX: R19.5 Other fecal abnormalities (principal); K57.90 Diverticulosis of intestine, part unspecified, without perforation or abscess without bleeding; D64.9 Anemia, unspecified; R63.4 Abnormal weight loss
CPT/HCPCS: 99214

== ENCOUNTER → 2024-12-31 11:26 | Outpatient (BNVA) | payer OTHER, SELFPAY | PROVIDERS: PCP Internal Medicine; Visit Provider Internal Medicine | DX: R19.5 Other fecal abnormalities (principal); R63.4 Abnormal weight loss; D64.9 Anemia, unspecified; K57.90 Diverticulosis of intestine, part unspecified, without perforation or abscess without bleeding | CPT/HCPCS: 99212 ==

== ENCOUNTER 2025-04-28 11:32 | Outpatient (AMB) | payer OTHER, SELFPAY ==
--- NOTE | 2025-04-28 11:43 | A.OFFPC_ITS ---
Vital Signs 04/28/25 11:47 BMI Reason not done Patient refused/unable BP 114/68 Blood Pressure Location Lt brachial Position Sitting Respiration 12 Pulse 77 Pulse Source Pulse Oximeter Pulse Oximetry (%) 97 Oxygen Delivery Method Room Air Intake Visit Reasons: follow up thyroid Intake Note: Follow up. Needs a new script to [facility] for over the tub bathroom bar. Wants a cream for toe nail fungus [employer] Required: No Allergies morphine Adverse Reaction (Verified 04/28/25 11:46) Blood pressure drops Tobacco use date assessed: 12/29/24 Fall risk assessment: No Falls in past year Last assessed Fall Risk: 04/28/25 Dental Screening Dental Screen Date: 04/28/25 Did you have a dental visit in the last 12 months?: Yes Did you have a dental problem in the last 6 months where you did not have access to dental care?: No Was dental information given to patient?: Patient has dentist HPI HPI Comments History of Present Illness Details 69 year old female with no significant p ast medical history of COPD, hypothyroid, tobacco use, hearing loss, weight loss presenting for follow up Weight loss: Saw GI at [facility]-abnormal weight. Decided against endoscopy. Had barium study. Dr Ellis previously who used pediatric scope for difficult colon. Weight has stabilized even able to gain a few pounds. Combined -CT chest/abdomen/pelvis abnormal finding LUNGS: No gross consolidation. No gross bronchiectasis or honeycombing. Intraluminal abnormality is extending from the distal trachea into the right mainstem bronchus. MEDIASTINUM: Soft tissue fullness in the subcarinal without discrete mass. ADRENAL GLANDS: There is a 3.9 cm heterogeneous mixed density (54 Hounsfield units) nodule in the left adrenal gland without focal calcifications. No nodular lesion in the right adrenal gland. KIDNEYS AND URETERS: Bilateral, multifocal and different sizes well-defined round nonenhancing fluid density lesions in the kidneys, the largest in the lower pole of the right kidney measures 4 cm and the largest in the left kidney measures 1.5 cm in the upper pole. GASTROINTESTINAL TRACT: There is an intraluminal hypodensity within the duodenal jejunal junction which measures 44 Hounsfield units. Hypothyroid-very improved memory and functioning on thyroid replacement therapy Neuro: Improved memory, cognition. Still with generalized weakness, orthostasis, fairly severe COPD. COPD-stable on trelegy Has hearing aid service dog. Evaluated for hearing aids Does all ADLs at home. Previously declined mammography, colonoscopy, bone density. ROS see HPI PHYSICAL EXAM: GENERAL: Alert and oriented x 3. NAD EYES: EOMI. Anicteric. HENT: Moist mucous membranes. No scleral icterus. No cervical lymphadenopathy. LUNGS: Clear to auscultation bilaterally. CARDIOVASCULAR: Regular rate and rhythm. No murmur. No JVD. ABDOMEN: Soft, non-tender +bs EXTREMITIES: No edema. Non-tender. SKIN: No rashes or lesions. Warm. NEUROLOGIC: No focal neurological deficits. CN II-XII grossly intact PSYCHIATRIC: Cooperative. Appropriate mood and affect [facility] Medical History Imbalance Memory loss IBS (irritable bowel syndrome) Thyroid disease COPD (chronic obstructive pulmonary disease) Fracture of distal end of fibula Surgical History Hx of colonoscopy History of esophagogastroduodenoscopy (EGD) H/O: hysterectomy History of bladder surgery Family History Mother Asthma Thyroid disease Father Cardiovascular disease Social History Housing: Apartment Alcohol intake: never Patient Tobacco Use Status: Current everyday Tobacco user Tobacco use type: Cigarette Cigarette Packs Per Day: 0.25 Years Smoked: 50 Packs Per Year: 13 e-Cigarette/Vaping Use: Never Used Second Hand Smoke Exposure: No service: No Current occupational status: retired Current occupational exposures/hazards: No Cognitive needs: No Hearing needs: Yes Vision needs: No Questionnaire Thrive Questionnaire Date Thrive assessed: 12/29/24 I am a: Patient What is your living situation today?: I choose not to answer this question Within the past 12 months, did the food you bought not last and you didn't have the money to get more?: I choose not to answer this question Within the past 12 months, did you worry whether your food would run out before you got money to buy more?: I choose not to answer this question Do you have trouble paying for medicines?: I choose not to answer this question Do you have trouble getting transportation to medical appointments?: I choose not to answer this question Do you have trouble paying your heating and electricity bill?: I choose not to answer this question Do you have trouble taking care of your child, family member or friend?: I choose not to answer this question Do you have trouble with day-to-day activities such as bathing, preparing meals, shopping, managing finances, etc.?: I choose not to answer this question Are you currently unemployed and looking for a job?: I choose not to answer this question Are you interested in more education?: I choose not to answer this question Please select the resources that you would like help with: None Currently or been in a relationship where the following occur: I choose not to answer THRIVE Score: 0 ADRIENNE-7 AMB Questionnaire ADRIENNE-7 Date ADRIENNE - 7 assessed: 05/30/24 Source: Developed by Drs. Fer Talbot, Carolina Alcantara, Prince Thompson and colleagues, with an educational jose from [employer]. Physical exam (Primary Care) Vital Signs: Last Vital Signs Pulse 77 04/28/25 11:47 Resp 12 04/28/25 11:47 BP 114/68 04/28/25 11:47 Pulse Ox 97 04/28/25 11:47 Oxygen Delivery Method Room Air 04/28/25 11:47 Tobacco/Smoking Status: Tobacco use Status Tobacco use date assessed 12/29/24 04/28/25 11:44 Patient Tobacco Use Status Current everyday Tobacco 04/28/25 11:44 Tobacco use type Cigarette 04/28/25 11:44 e-Cigarette/Vaping Use Never Used 04/28/25 11:44 Thrive Assessment: Date of Thrive Assessment Date Thrive assessed 12/29/24 04/28/25 11:44 Currently or been in a relationship where the following occur: I choose not to answer Coding Level of Care Code Est Pt Level 4 (00326) Complex EM visit Add On G2211 Diagnoses Thyroid disease E07.9 Chronic bronchitis, unspecified chronic bronchitis type J42 COPD type: chronic bronchitis Chronic bronchitis type: unspecified Assessment & Plan Assessment & Plan (1) Thyroid disease: Code(s): E07.9 - Disorder of thyroid, unspecified Category: Medical (2) COPD (chronic obstructive pulmonary disease): Code(s): J44.9 - Chronic obstructive pulmonary disease, unspecified Category: Medical Qualifiers: COPD type: chronic bronchitis Chronic bronchitis type: unspecified Qualified Code(s): J42 - Unspecified chronic bronchitis Plan Hypothyroid-stable on levothyroxine weight loss has stabilized. Has declined endoscopy at present. would like to pursue cologuard Foot rash-clotrimazole ordered Orders: Orders Comprehensive Met. Panel 04/28/25 D64.9 - Anemia, unspecified, E07.9 - Disorder of thyroid, unspecified, J42 - Unspecified chronic bronchitis Complete Blood Count Auto Diff 04/28/25 D64.9 - Anemia, unspecified, E07.9 - Disorder of thyroid, unspecified, J42 - Unspecified chronic bronchitis TSH reflex Free T4 04/28/25 D64.9 - Anemia, unspecified, E07.9 - Disorder of thyroid, unspecified, J42 - Unspecified chronic bronchitis Referrals Cologuard Test Z12.11 - Encounter for screening for malignant neoplasm of colon, Z12.12 - Encounter for screening for malignant neoplasm of rectum Medications: New clotrimazole 1% 1 appl topical BID 45 grams 0RF 4 weeks Refilled [over the tub bathroom bar] As directed 1 ea 0RF E27.9 - Disorder of adrenal gland, unspecified, R26.89 - Other abnormalities of gait and mobility, R53.1 - Weakness [over the tub bathroom bar] As directed 1 ea 0RF E27.9 - Disorder of adrenal gland, unspecified, R26.89 - Other abnormalities of gait and mobility, R53.1 - Weakness [over the tub bathroom bar] As directed 1 ea 0RF E27.9 - Disorder of adrenal gland, unspecified, R26.89 - Other abnormalities of gait and mobility, R53.1 - Weakness
[2025-04-28 11:47] VITALS: BP 114/68; PULSE 77; RESP 12; O2SAT 97
--- OUTSIDE RECORDS SUMMARY | 2025-04-28 12:25 | XMS_ITS | Clinical Summary ---
Author Organization [facility] it Address [address] [place] [address] Care Team Providers Care Process Safety Specialist Name Role Phone Kel Mcginnis MD Primary [...] PROCEDURE: HISTORICAL DELIVERY OTHER SURGICAL HISTORY PROCEDURE: [place] CLOSURE ENTEROSTOMY LG/SMALL INTESTINE Medical History Medical History Date Comments Hypothyroid DX:Hypothyroid IBS (irritable bowel syndrome) D X:IBS (irritable bowel syndrome) Emphysema/COPD (CMS/HCC V24, CMS/HCC V28) DX:Emphysema/COPD (HCC) Joint pain DX:Joint pain Hearing loss DX:Hearing loss Memory loss DX:Memory loss Family history of emotional abuse DX:Family history of emotional abuse Elevated LFTs DX:Elevated LFTs ; COMMENT: [facility] at [facility] Gallstones DX:Gallstones Calculus of gallbladder [...] 2) 02/07/2006 Colorectal Cancer Screening: Colonoscopy 08/22/2022 Falls Risk Assessment 08/22/2022 Hepatitis C Screening 08/22/2022 Osteoporosis Screening (Bone Density Screening) 08/22/2022 Social Influencers of Health Screening 08/22/2022 COVID-19 Vaccine (1 - 2023-2 5 season) 2024 Depression Screening 09/24/2024 Influenza Vaccine (#1) 2025 RSV Immunization Adult Patie nts (1 [...] age to complete this topic Care Teams Process Safety Specialist Relationship Specialty Start Date End Date Kel Mcginnis MD [address] [place] [address] PCP - General 06/15/23
== END 2025-04-28 14:01 | disposition home or self-care (01) ==
LOC: HO.HMCFM 11:33
PROVIDERS: PCP Internal Medicine; Visit Provider Internal Medicine
DX: E07.9 Disorder of thyroid, unspecified (principal); J42 Unspecified chronic bronchitis

== ENCOUNTER → 2025-04-28 11:32 | Outpatient (BNVA) | payer OTHER, SELFPAY | PROVIDERS: PCP Internal Medicine; Visit Provider Internal Medicine | DX: E07.9 Disorder of thyroid, unspecified (principal); J42 Unspecified chronic bronchitis | CPT/HCPCS: 99212 ==

== ENCOUNTER 2025-05-05 10:51 | Outpatient (REF) | payer OTHER, SELFPAY ==
[2025-05-05 11:09] LABS: MANUAL DIFF FLAG NO
[2025-05-05 11:46] LABS: Hematocrit 40.8 % (37.0-47.0); Hemoglobin 14.6 g/dl (12.0-16.0); Imm Gran Abs Auto 0.03 X10*3/uL (0.00-0.03); Imm Gran Pct Auto 0.4 % (0.0-0.4); Lymphocytes Absolute Auto 1.4 X10*3/uL (1.2-4.9); Mean Corpuscular HGB Conc 35.8 g/dl (31.0-35.0); Mean Corpuscular Hemoglobin 32.4 pg (27.0-33.0); Mean Corpuscular Volume 90.7 fL (80.0-98.0); NRBC Abs Auto 0.000 X10*3/uL (0.0-0.012); NRBC Pct Auto 0.0 /100WBC (0.0-0.2); Platelet Count 271 X10*3/uL (160-400); Red Blood Count 4.50 X10*6/uL (4.20-5.50); White Blood Count 6.8 X10*3/uL (4.8-10.8)
--- OUTSIDE RECORDS SUMMARY | 2025-05-05 12:00 | XMS_ITS | Clinical Summary ---
Author Organization [facility] it Address [address] [place] [address] Care Team Providers Care Crop Specialist Name Role Phone Kel Mcginnis MD [...] PROCEDURE: HISTORICAL DELIVERY OTHER SURGICAL HISTORY PROCEDURE: [place] CLOSURE ENTEROSTOMY LG/SMALL INTESTINE Medical History Medical History Date Comments Hypothyroid DX:Hypothyroid IBS (irritable bowel syndrome) D X:IBS (irritable bowel syndrome) Emphysema/COPD (CMS/HCC V24, CMS/HCC V28) DX:Emphysema/COPD (HCC) Joint pain DX:Joint pain Hearing loss DX:Hearing loss Memory loss DX:Memory loss Family history of emotional abuse DX:Family history of emotional abuse Elevated LFTs DX:Elevated LFTs ; COMMENT: [facility] at [facility] Gallstones DX:Gallstones Calculus of gallbladder with [...] age to complete this topic Care Teams Crop Specialist Relationship Specialty Start Date End Date Kel Mcginnis MD [address] [place] [address] PCP - General 06/15/23
[2025-05-05 12:51] LABS: Alanine Aminotransferase 13 U/L (0-31); Albumin Level 4.6 g/dL (3.5-5.0); Alkaline Phosphatase 128 U/L (39-117); Anion Gap 16 (12-20); Aspartate Amino Transferase 25 U/L (5-31); Blood Urea Nitrogen 11 mg/dL (9-16); Calcium 9.4 mg/dL (8.4-10.2); Carbon Dioxide 24 mmol/L (22-29); Chloride 97 mmol/L (96-108); Estimated Glomerular Filt Rate > 60; Potassium 4.2 mmol/L (3.3-5.1); Sodium 133 mmol/L (135-145); Total Protein 7.5 g/dL (6.5-8.0)
[2025-05-05 13:42] LABS: Free T4 (Free Thyroxine) 1.01 ng/dL (0.71-1.85)
== END 2025-05-05 10:52 | disposition home or self-care (01) ==
LOC: HO.LAB 10:51
PROVIDERS: PCP Internal Medicine; Visit Provider Internal Medicine
DX: E07.9 Disorder of thyroid, unspecified (principal); J42 Unspecified chronic bronchitis; D64.9 Anemia, unspecified
CPT/HCPCS: 36415; 80053; 84439; 84443; 85025